=== PATIENT | male | born 1975 | race Caucasian/White ===

== ENCOUNTER 2023-01-03 01:04 | Inpatient (IN) | payer OTHER, MEDICAID ==
[2023-01-03 01:14] LABS: Actual Bicarbonate (HCO3a) 17.4 mEq/L (22-28); Analyzer IN Cardio ER; Base Excess (BEa) -14.1 mEq/L (-2.0 to +3.0); Carboxyhemoglobin (COHb) 0.3 gm% (0.0-3.0); Hematocrit-ABG 44 % (42.0-52.0); O2 Tension (PaO2), arterial 85.5 mmHg (80.0-100.0); Potassium - ABG Lab 5.52 mmol/L (3.70-5.30)
[2023-01-03 01:17] LABS: ALV-art Gradient 545.875 mmHg (0-20); Puncture Site RRA
[2023-01-03] MEDS ORDERED: Dexamethasone 10 MG/ML VIAL ONE (01:18)
[2023-01-03] MEDS ORDERED: Vancomycin 1 GM/200 ML (FROZEN) BAG ONE (01:19)
[2023-01-03] MEDS ORDERED: Magnesium 2 GM/50 ML BAG (IN WATER) ONE (01:19)
[2023-01-03] MEDS ORDERED: Cefepime 2 GM VIAL ONE (01:19)
[2023-01-03] MEDS ORDERED: Ipratropium/Albuterol 3 ML NEB ONE (01:24)
[2023-01-03] MEDS ORDERED: Fentanyl CADD 100 ML IV SCH (01:30)
[2023-01-03 01:31] LABS: #Monocytes 0.6 thou/uL (0.11-0.59); #Neutrophils 13.4 thou/uL (1.40-6.50); %Basophils 0.2 % (0.0-1.0); %Lymphocytes 3.6 % (21.0-51.0); %Monocytes 3.8 % (0.0-10.0); %Neutrophils 91.9 % (42.0-75.0); Hemoglobin 14.2 g/dL (14.0-18.0); Mean Corpuscular HGB CONC 31.9 g/dL (32.0-36.0); Mean Corpuscular Hemoglobin 30.5 pg (27.0-31.0); Mean Corpuscular Volume 95.7 fl (78.0-98.0); Mean Platelet Volume 8.8 fL (7.4-10.4); Platelet Count 220 10x3/uL (130-400); Red Blood Cell (RBC) Count 4.65 mill/uL (4.70-6.10); White Blood Cell (WBC) Count 14.6 10x3/uL (4.8-10.8)
[2023-01-03 01:44] LABS: Bacteria/HPF None Seen HPF (None Seen); Bilirubin Negative (Negative); Blood, Urine 1+ (Negative); Clarity Clear (Clear); Glucose, Urine (Dipstick) Normal (Negative); Ketone, Urine 10 mg/dL (Negative); Leukocyte Negative Leu/uL (Negative); Nitrite Negative (Negative); Protein, Urine (Dipstick) 100 mg/dL (Neg-Trace); RBC/HPF 0-3 HPF (0-3); Specific Gravity, Urine 1.019 (1.002-1.036); Squamous Epithelial 0-3 HPF (0-3); Urobilinogen Normal mg/dL (Less than 2); WBC/HPF 0-3 HPF (0-3); pH, Urine 5.5 (5.0-9.0)
[2023-01-03 02:02] LABS: AST (SGOT) 42 U/L (5-34); Albumin 4.3 g/dL (3.5-5.0); Alkaline Phosphatase 137 U/L (40-110); Anion Gap 24 mmol/L (10-20); BUN (Urea Nitrogen) 47 mg/dL (8.9-20.6); Bilirubin, Total Less than 0.2 mg/dL (0.2-1.2); CK (CPK) 707 U/L (30-200); Calc. Creatinine Clearance 0 mL/min (70-130); Calcium 9.7 mg/dL (7.8-10.44); Carbon Dioxide 17 mmol/L (22-29); Chloride 106 mmol/L (98-107); Estimated GFR 30; Globulin 3.3 g/dL (2.4-3.5); Glucose 162 mg/dL (70-105); Potassium 5.7 mmol/L (3.5-5.1); Protein, Total 7.6 g/dL (6.0-8.3); Sodium 141 mmol/L (136-145)
[2023-01-03 02:03] LABS: ALT (SGPT) 37 U/L (8-55)
[2023-01-03 02:38] LABS: Lipase 119 U/L (8-78)
[2023-01-03] MEDS ORDERED: Ondansetron PF 4 MG/2 ML Vial IVP PRN (03:42)
[2023-01-03] MEDS ORDERED: Ventilator Sedation Protocol 1 EACH FS SCH (03:45)
[2023-01-03] MEDS ORDERED: Glucagon 1 MG/ML KIT IM PRN (03:46)
[2023-01-03] MEDS ORDERED: Dextrose 5% in Water 1,000 ML IV PRN (03:46)
[2023-01-03] MEDS ORDERED: HumaLOG 300 UNITS/3 ML VIAL SC PRN ×2 (03:46)
[2023-01-03] MEDS ORDERED: Propofol BOLUS 1,000 MG/100 ML VIAL IV PRN (04:00)
[2023-01-03] MEDS ORDERED: DISCONTINUE PREVIOUS NARCOTIC PAIN MEDICATIONS AND BENZODIAZEPINES FS SCH (04:00)
[2023-01-03] MEDS ORDERED: Fentanyl BOLUS 250 ML IVPB PRN (04:00)
[2023-01-03] MEDS ORDERED: Ipratropium/Albuterol 3 ML NEB EZPAP PRN (04:02)
[2023-01-03 04:12] LABS: Actual Bicarbonate (HCO3a) 18.3 mEq/L (22-28); Base Excess (BEa) -15.3 mEq/L (-2.0 to +3.0); Calcium, Ionized (arterial) 1.17 mmol/L (1.12-1.30); Carboxyhemoglobin (COHb) 0.3 gm% (0.0-3.0); Hematocrit-ABG 44 % (42.0-52.0); Hemoglobin (Hb) 14.8 g/dL (14.0-18.0); O2 Tension (PaO2), arterial 111.7 mmHg (80.0-100.0); Potassium - ABG Lab 5.38 mmol/L (3.70-5.30)
[2023-01-03 04:13] LABS: CO2 Tension 83.8 mmHg (35.0-45.0); Puncture Site RRA; pH, Arterial 6.957 (7.35-7.45)
[2023-01-03] MEDS ORDERED: Ipratropium/Albuterol 3 ML NEB EZPAP SCH ×2 (05:00→10:30)
[2023-01-03] MEDS ORDERED: VANCOMYCIN IVPB PRN (05:02)
[2023-01-03] MEDS ORDERED: Vecuronium 10 MG VIAL IVP PRN (05:18)
[2023-01-03] MEDS: Propofol 1,000 MG/100 ML VIAL IV PRN ×2 (05:29→16:46)
[2023-01-03] MEDS: methylPREDNISolone Sod Succ 40 MG VIAL IVP SCH ×4 (05:29→23:57)
[2023-01-03] MEDS ORDERED: Artificial Tear Sol 15 ML BOT EA EYE PRN (05:37)
[2023-01-03] MEDS ORDERED: Ipratropium/Albuterol 3 ML NEB NEB SCH ×2 (06:30→07:00)
[2023-01-03] MEDS ORDERED: Vancomycin 1 GM in Premix Bag 1 BAG IVPB SCH ×2 (06:30→09:00)
[2023-01-03 06:36] LABS: ALT (SGPT) 32 U/L (8-55); AST (SGOT) 34 U/L (5-34); Albumin 3.9 g/dL (3.5-5.0); Alkaline Phosphatase 132 U/L (40-110); Anion Gap 22 mmol/L (10-20); BUN (Urea Nitrogen) 46 mg/dL (8.9-20.6); Bilirubin, Total Less than 0.2 mg/dL (0.2-1.2); Calc. Creatinine Clearance 61 mL/min (70-130); Calcium 8.7 mg/dL (7.8-10.44); Carbon Dioxide 14 mmol/L (22-29); Chloride 108 mmol/L (98-107); Estimated GFR 31; Glucose 330 mg/dL (70-105); Protein, Total 6.9 g/dL (6.0-8.3); Sodium 137 mmol/L (136-145)
[2023-01-03 06:37] LABS: Actual Bicarbonate (HCO3a) 17.7 mEq/L (22-28); Base Excess (BEa) -14.3 mEq/L (-2.0 to +3.0); Calcium, Ionized (arterial) 1.16 mmol/L (1.12-1.30); Carboxyhemoglobin (COHb) 0.2 gm% (0.0-3.0); Hematocrit-ABG 44 % (42.0-52.0); Hemoglobin (Hb) 14.9 g/dL (14.0-18.0); O2 Tension (PaO2), arterial 94.8 mmHg (80.0-100.0)
[2023-01-03 06:42] LABS: Potassium 6.6 mmol/L (3.5-5.1)
[2023-01-03] MEDS ORDERED: Sodium Bicarb 50 MEQ/50 ML VIAL IVP SCH ×2 (06:45→11:45)
[2023-01-03] MEDS ORDERED: Insulin Regular 300 UNITS/3 ML VIAL IVP SCH (06:45)
[2023-01-03 06:46] LABS: Amphetamine Not Detected (NotDetected); Barbiturates Screen Not Detected (NotDetected); Benzodiazepine Screen Not Detected (NotDetected); Cocaine Metabolite Screen Not Detected (NotDetected); Methadone Not Detected (NotDetected); Methamphetamine Not Detected (NotDetected); Opiate Screen Not Detected (NotDetected); Oxycodone Screen Not Detected (NotDetected); Phencyclidine (PCP) Not Detected (NotDetected); THC/Cannabinoid Screen Not Detected (NotDetected); Tricyclic Screen Not Detected (NotDetected)
[2023-01-03 07:00] LABS: SARS-CoV-2 NAA Rapid Test Not Detected (NotDetected)
[2023-01-03] MEDS ORDERED: Sodium Chloride 0.45% 1,000 ML IV SCH (07:00)
[2023-01-03] MEDS ORDERED: CALCIUM GLUC 1 GM/NS 50 ML 1 GM in Premix Bag 1 BAG IVPB SCH (07:00)
[2023-01-03 07:09] LABS: pH, Arterial 7.021 (7.35-7.45)
[2023-01-03 07:10] LABS: Potassium - ABG Lab 6.56 mmol/L (3.70-5.30); Puncture Site RRA
[2023-01-03] MEDS: Sodium Bicarbonate 70 MEQ in Sodium Chloride 0.45% 1,000 ML IV SCH ×2 (07:56→17:32)
[2023-01-03] MEDS: Vecuronium 10 MG VIAL IVP PRN ×5 (07:57→19:19)
[2023-01-03] MEDS: Famotidine 20 MG TAB PER TUBE SCH (08:13)
[2023-01-03] MEDS: Heparin 5,000 UNITS/ML VIAL SC SCH ×2 (08:13→20:06)
[2023-01-03] MEDS ORDERED: Iopamidol-370 76% 500 ML MDV (1 ML CHARGE) ONE (08:51)
[2023-01-03 09:39] LABS: Legionella Urinary Ag Negative (Negative); Strep pneumo Urine Ag NEGATIVE (NEGATIVE)
[2023-01-03] MEDS: Ipratropium/Albuterol 3 ML NEB NEB SCH ×4 (10:47→22:22)
[2023-01-03] MEDS: Albumin 25% 25 GM/100 ML BOT IVPB SCH ×3 (11:09→23:57)
[2023-01-03] MEDS: HumaLOG 300 UNITS/3 ML VIAL SC PRN ×3 (11:17→19:52)
[2023-01-03 11:20] LABS: Anion Gap 21 mmol/L (10-20); BUN (Urea Nitrogen) 47 mg/dL (8.9-20.6); Calc. Creatinine Clearance 61 mL/min (70-130); Calcium 8.4 mg/dL (7.8-10.44); Carbon Dioxide 11 mmol/L (22-29); Chloride 110 mmol/L (98-107); Estimated GFR 32; Glucose 357 mg/dL (70-105); Sodium 136 mmol/L (136-145)
[2023-01-03 11:23] LABS: Potassium 6.3 mmol/L (3.5-5.1)
[2023-01-03] MEDS: Cefepime 1 GM in Sodium Chloride 0.9% 100 ML IVPB SCH (14:02)
[2023-01-03 16:40] LABS: Anion Gap 16 mmol/L (10-20); BUN (Urea Nitrogen) 50 mg/dL (8.9-20.6); Calc. Creatinine Clearance 58 mL/min (70-130); Calcium 8.7 mg/dL (7.8-10.44); Carbon Dioxide 22 mmol/L (22-29); Chloride 111 mmol/L (98-107); Estimated GFR 30; Glucose 282 mg/dL (70-105); Potassium 4.7 mmol/L (3.5-5.1); Sodium 144 mmol/L (136-145)
[2023-01-03] MEDS ORDERED: Sterile Water 10 ML ONE (19:11)
[2023-01-04] MEDS: HumaLOG 300 UNITS/3 ML VIAL SC PRN ×6 (00:12→20:51)
[2023-01-04] MEDS ORDERED: Sterile Water 10 ML ONE ×3 (01:36→09:06)
[2023-01-04] MEDS: Vecuronium 10 MG VIAL IVP PRN ×4 (01:37→11:30)
[2023-01-04] MEDS: Ipratropium/Albuterol 3 ML NEB NEB SCH ×6 (02:16→22:25)
[2023-01-04] MEDS: Cefepime 1 GM in Sodium Chloride 0.9% 100 ML IVPB SCH ×2 (02:35→14:20)
[2023-01-04] MEDS: VANCOMYCIN 2 GRAM/500 ML BAG 2 GM in Premix Bag 1 BAG IVPB SCH (03:08)
[2023-01-04] MEDS: Sodium Bicarbonate 70 MEQ in Sodium Chloride 0.45% 1,000 ML IV SCH (03:22)
[2023-01-04 03:49] LABS: INR-International Normal Ratio 1.9; Prothrombin Time 22.7 sec (12.0-14.7)
[2023-01-04 03:50] LABS: PTT 47.5 sec (22.9-36.1)
[2023-01-04 03:52] LABS: Phosphorus 2.3 mg/dL (2.3-4.7)
[2023-01-04 03:55] LABS: Hemoglobin A1c 6.9 % (4.0-6.0)
[2023-01-04 03:57] LABS: ALT (SGPT) 20 U/L (8-55); AST (SGOT) 23 U/L (5-34); Alkaline Phosphatase 90 U/L (40-110); Anion Gap 19 mmol/L (10-20); BUN (Urea Nitrogen) 48 mg/dL (8.9-20.6); Bilirubin, Total Less than 0.2 mg/dL (0.2-1.2); CK (CPK) 656 U/L (30-200); Calc. Creatinine Clearance 64 mL/min (70-130); Calcium 8.5 mg/dL (7.8-10.44); Carbon Dioxide 21 mmol/L (22-29); Chloride 109 mmol/L (98-107); Estimated GFR 33; Globulin 2.2 g/dL (2.4-3.5); Glucose 232 mg/dL (70-105); Lipase 61 U/L (8-78); Magnesium 2.6 mg/dL (1.6-2.6); Potassium 3.6 mmol/L (3.5-5.1); Protein, Total 6.2 g/dL (6.0-8.3); Sodium 145 mmol/L (136-145)
[2023-01-04] MEDS: Acetaminophen 650 MG Suppository PR PRN (04:24)
[2023-01-04] MEDS: methylPREDNISolone Sod Succ 40 MG VIAL IVP SCH ×3 (05:02→18:09)
[2023-01-04] MEDS: Albumin 25% 25 GM/100 ML BOT IVPB SCH (05:02)
[2023-01-04 06:12] LABS: Mean Corpuscular HGB CONC 32.4 g/dL (32.0-36.0); Mean Corpuscular Hemoglobin 31.6 pg (27.0-31.0); Mean Corpuscular Volume 97.6 fl (78.0-98.0); Mean Platelet Volume 9.2 fL (7.4-10.4); Platelet Count 178 10x3/uL (130-400); RBC Distribution Width 13.4 % (11.5-14.5); Red Blood Cell (RBC) Count 3.35 mill/uL (4.70-6.10); White Blood Cell (WBC) Count 11.8 10x3/uL (4.8-10.8)
[2023-01-04 07:15] LABS: Hemoglobin 10.6 g/dL (14.0-18.0)
[2023-01-04 07:18] LABS: Delete Auto Diff?? YES; Manual Diff?? YES
[2023-01-04] MEDS ORDERED: LOKELMA 10 GM PACKET PO SCH (09:00)
[2023-01-04] MEDS: Heparin 5,000 UNITS/ML VIAL SC SCH ×2 (09:23→20:46)
[2023-01-04] MEDS: Famotidine 20 MG TAB PER TUBE SCH ×2 (09:23→20:47)
[2023-01-04 09:43] LABS: Band 17 % (5-11); CellaVision Operator ID LAB.CMB; Eosinophils 4 % (0-10); Large Platelets 0.9 % (0-5); Lymphocytes 9 % (21-51); Monocytes 5 % (0-10); Neutrophil 66 % (42-75); Platelet Adequacy Comment Platelets Normal; Polychromasia SLIGHT = 2-3 cells HPF (0-2); Total Cell Count 108
[2023-01-04 10:59] LABS: Actual Bicarbonate (HCO3a) 23.6 mEq/L (22-28); Base Excess (BEa) 1.4 mEq/L (-2.0 to +3.0); CO2 Tension 29.9 mmHg (35.0-45.0); Calcium, Ionized (arterial) 1.09 mmol/L (1.12-1.30); Carboxyhemoglobin (COHb) 0.3 gm% (0.0-3.0); Hematocrit-ABG 33 % (42.0-52.0); Hemoglobin (Hb) 11.3 g/dL (14.0-18.0); O2 Tension (PaO2), arterial 141.3 mmHg (80.0-100.0); Potassium - ABG Lab 3.16 mmol/L (3.70-5.30); Puncture Site LRA; pH, Arterial 7.516 (7.35-7.45)
[2023-01-04 11:00] LABS: ALV-art Gradient 106.525 mmHg (0-20)
[2023-01-04] MEDS ORDERED: Electrolyte Replacement Protocol FS PRN (11:15)
[2023-01-04] MEDS ORDERED: Insulin Glargine 30 UNITS/0.3 ML VIAL SC SCH (11:15)
[2023-01-04] MEDS: Lorazepam 2 MG/ML VIAL SLOW IVP PRN (11:25)
[2023-01-04] MEDS: Acetaminophen 325 MG TAB PO PRN (11:43)
[2023-01-04] MEDS: Dextrose 5 %-0.45 % NaCl 1,000 ML IV SCH (11:56)
[2023-01-04] MEDS: Propofol 1,000 MG/100 ML VIAL IV PRN ×2 (14:20→22:00)
[2023-01-04] MEDS: Insulin Glargine 30 UNITS/0.3 ML VIAL SC SCH (20:47)
[2023-01-05] MEDS: methylPREDNISolone Sod Succ 40 MG VIAL IVP SCH ×3 (00:08→20:56)
[2023-01-05] MEDS: Dextrose 5 %-0.45 % NaCl 1,000 ML IV SCH (00:11)
[2023-01-05] MEDS: HumaLOG 300 UNITS/3 ML VIAL SC PRN ×6 (00:24→20:58)
[2023-01-05 01:54] LABS: Vancomycin, Trough 17.8 ug/mL
[2023-01-05] MEDS: Ipratropium/Albuterol 3 ML NEB NEB SCH ×6 (02:10→22:20)
[2023-01-05] MEDS: Cefepime 1 GM in Sodium Chloride 0.9% 100 ML IVPB SCH ×2 (02:21→17:08)
[2023-01-05] MEDS: VANCOMYCIN 2 GRAM/500 ML BAG 2 GM in Premix Bag 1 BAG IVPB SCH (02:51)
[2023-01-05 04:07] LABS: #Monocytes 0.5 thou/uL (0.11-0.59); #Neutrophils 7.9 thou/uL (1.40-6.50); %Basophils 0.1 % (0.0-1.0); %Lymphocytes 6.1 % (21.0-51.0); %Neutrophils 88.4 % (42.0-75.0); Hemoglobin 10.4 g/dL (14.0-18.0); Mean Corpuscular HGB CONC 31.6 g/dL (32.0-36.0); Mean Corpuscular Volume 94.8 fl (78.0-98.0); Mean Platelet Volume 9.6 fL (7.4-10.4); Platelet Count 174 10x3/uL (130-400); RBC Distribution Width 13.5 % (11.5-14.5); Red Blood Cell (RBC) Count 3.47 mill/uL (4.70-6.10)
[2023-01-05 04:22] LABS: INR-International Normal Ratio 1.3; PTT 40.8 sec (22.9-36.1); Prothrombin Time 17.1 sec (12.0-14.7)
[2023-01-05 04:36] LABS: ALT (SGPT) 18 U/L (8-55); AST (SGOT) 31 U/L (5-34); Albumin 3.8 g/dL (3.5-5.0); Alkaline Phosphatase 83 U/L (40-110); Anion Gap 14 mmol/L (10-20); BUN (Urea Nitrogen) 42 mg/dL (8.9-20.6); Bilirubin, Total 0.2 mg/dL (0.2-1.2); Calc. Creatinine Clearance 72 mL/min (70-130); Calcium 8.8 mg/dL (7.8-10.44); Carbon Dioxide 24 mmol/L (22-29); Chloride 111 mmol/L (98-107); Estimated GFR 39; Globulin 2.2 g/dL (2.4-3.5); Potassium 3.5 mmol/L (3.5-5.1); Sodium 145 mmol/L (136-145)
[2023-01-05 04:58] LABS: Glucose 414 mg/dL (70-105)
[2023-01-05 06:59] LABS: Actual Bicarbonate (HCO3a) 26.9 mEq/L (22-28); CO2 Tension 38.5 mmHg (35.0-45.0); Calcium, Ionized (arterial) 1.16 mmol/L (1.12-1.30); Hematocrit-ABG 33 % (42.0-52.0); Hemoglobin (Hb) 11.3 g/dL (14.0-18.0); O2 Tension (PaO2), arterial 76.7 mmHg (80.0-100.0); Potassium - ABG Lab 3.63 mmol/L (3.70-5.30); pH, Arterial 7.462 (7.35-7.45)
[2023-01-05 07:01] LABS: Puncture Site RRA
[2023-01-05 07:02] LABS: ALV-art Gradient 160.375 mmHg (0-20)
[2023-01-05] MEDS: Heparin 5,000 UNITS/ML VIAL SC SCH ×2 (08:04→20:55)
[2023-01-05] MEDS: Famotidine 20 MG TAB PER TUBE SCH ×2 (08:04→20:56)
[2023-01-05] MEDS: Propofol 1,000 MG/100 ML VIAL IV PRN (08:04)
[2023-01-05] MEDS: Insulin Glargine 30 UNITS/0.3 ML VIAL SC SCH ×2 (08:04→20:53)
[2023-01-05] MEDS: Potassium Chloride 20 MEQ in Premix Bag 1 BAG IVPB SCH ×2 (08:12→10:22)
[2023-01-05] MEDS ORDERED: Furosemide 20 MG in Sodium Chloride 0.9% 90 ML IVPB SCH (10:15)
[2023-01-05] MEDS ORDERED: Furosemide 20 MG/2 ML VIAL SLOW IVP SCH (10:45)
[2023-01-05 10:48] LABS: Actual Bicarbonate (HCO3a) 25.9 mEq/L (22-28); Base Excess (BEa) 2.1 mEq/L (-2.0 to +3.0); CO2 Tension 37.3 mmHg (35.0-45.0); Calcium, Ionized (arterial) 1.18 mmol/L (1.12-1.30); Carboxyhemoglobin (COHb) 0.3 gm% (0.0-3.0); Hematocrit-ABG 34 % (42.0-52.0); Hemoglobin (Hb) 11.6 g/dL (14.0-18.0); O2 Tension (PaO2), arterial 80.1 mmHg (80.0-100.0); pH, Arterial 7.459 (7.35-7.45)
[2023-01-05 10:49] LABS: ALV-art Gradient 158.475 mmHg (0-20); Puncture Site RRA
[2023-01-06] MEDS: Ipratropium/Albuterol 3 ML NEB NEB SCH ×6 (01:52→22:27)
[2023-01-06] MEDS: Cefepime 1 GM in Sodium Chloride 0.9% 100 ML IVPB SCH (02:07)
[2023-01-06] MEDS: HumaLOG 300 UNITS/3 ML VIAL SC PRN (02:08)
[2023-01-06] MEDS: VANCOMYCIN 2 GRAM/500 ML BAG 2 GM in Premix Bag 1 BAG IVPB SCH (03:03)
[2023-01-06] MEDS: Acetaminophen 650 MG Suppository PR PRN (03:04)
[2023-01-06] MEDS: Acetaminophen 325 MG TAB PO PRN ×2 (03:12→21:22)
[2023-01-06 03:37] LABS: #Monocytes 0.3 thou/uL (0.11-0.59); #Neutrophils 11.5 thou/uL (1.40-6.50); %Basophils 0.1 % (0.0-1.0); %Lymphocytes 5.2 % (21.0-51.0); %Monocytes 2.6 % (0.0-10.0); %Neutrophils 91.6 % (42.0-75.0); Hemoglobin 11.5 g/dL (14.0-18.0); Mean Corpuscular HGB CONC 31.9 g/dL (32.0-36.0); Mean Corpuscular Hemoglobin 30.8 pg (27.0-31.0); Mean Corpuscular Volume 96.5 fl (78.0-98.0); Mean Platelet Volume 9.7 fL (7.4-10.4); Platelet Count 200 10x3/uL (130-400); RBC Distribution Width 13.2 % (11.5-14.5); Red Blood Cell (RBC) Count 3.73 mill/uL (4.70-6.10); White Blood Cell (WBC) Count 12.5 10x3/uL (4.8-10.8)
[2023-01-06 04:08] LABS: ALT (SGPT) 21 U/L (8-55); AST (SGOT) 29 U/L (5-34); Albumin 3.6 g/dL (3.5-5.0); Alkaline Phosphatase 85 U/L (40-110); Anion Gap 16 mmol/L (10-20); BUN (Urea Nitrogen) 50 mg/dL (8.9-20.6); Bilirubin, Total 0.2 mg/dL (0.2-1.2); Calc. Creatinine Clearance 72 mL/min (70-130); Calcium 8.9 mg/dL (7.8-10.44); Carbon Dioxide 25 mmol/L (22-29); Chloride 113 mmol/L (98-107); Estimated GFR 39; Globulin 2.6 g/dL (2.4-3.5); Glucose 408 mg/dL (70-105); Potassium 4.6 mmol/L (3.5-5.1); Protein, Total 6.2 g/dL (6.0-8.3); Sodium 149 mmol/L (136-145)
[2023-01-06] MEDS: HUMULIN R 100 UNITS in Sodium Chloride 0.9% 100 ML IVPB SCH ×2 (05:15→21:34)
[2023-01-06] MEDS: Insulin Glargine 30 UNITS/0.3 ML VIAL SC SCH ×2 (09:37→21:22)
[2023-01-06] MEDS: Furosemide 20 MG/2 ML VIAL SLOW IVP SCH (09:53)
[2023-01-06] MEDS: Famotidine 20 MG TAB PER TUBE SCH ×2 (09:53→21:21)
[2023-01-06] MEDS: Heparin 5,000 UNITS/ML VIAL SC SCH ×2 (09:54→21:21)
[2023-01-06] MEDS: methylPREDNISolone Sod Succ 40 MG VIAL IVP SCH (10:54)
[2023-01-06] MEDS ORDERED: methylPREDNISolone Sod Succ 40 MG VIAL IVP SCH (21:00)
[2023-01-07] MEDS: Ipratropium/Albuterol 3 ML NEB NEB SCH ×6 (02:25→22:45)
[2023-01-07 02:30] LABS: Vancomycin, Trough 22.6 ug/mL
[2023-01-07] MEDS: VANCOMYCIN 2 GRAM/500 ML BAG 2 GM in Premix Bag 1 BAG IVPB SCH (03:41)
[2023-01-07 04:58] LABS: #Monocytes 0.4 thou/uL (0.11-0.59); #Neutrophils 8.9 thou/uL (1.40-6.50); %Lymphocytes 8.7 % (21.0-51.0); %Monocytes 3.6 % (0.0-10.0); %Neutrophils 87.4 % (42.0-75.0); Hemoglobin 11.7 g/dL (14.0-18.0); Mean Corpuscular HGB CONC 31.1 g/dL (32.0-36.0); Mean Corpuscular Volume 96.4 fl (78.0-98.0); Mean Platelet Volume 10.1 fL (7.4-10.4); Platelet Count 188 10x3/uL (130-400); RBC Distribution Width 13.2 % (11.5-14.5); White Blood Cell (WBC) Count 10.2 10x3/uL (4.8-10.8)
[2023-01-07 05:34] LABS: ALT (SGPT) 52 U/L (8-55); AST (SGOT) 72 U/L (5-34); Albumin 3.6 g/dL (3.5-5.0); Alkaline Phosphatase 87 U/L (40-110); Anion Gap 15 mmol/L (10-20); BUN (Urea Nitrogen) 51 mg/dL (8.9-20.6); Bilirubin, Total 0.4 mg/dL (0.2-1.2); Calc. Creatinine Clearance 99 mL/min (70-130); Calcium 9.2 mg/dL (7.8-10.44); Carbon Dioxide 28 mmol/L (22-29); Chloride 112 mmol/L (98-107); Estimated GFR 58; Globulin 2.7 g/dL (2.4-3.5); Glucose 149 mg/dL (70-105); Potassium 4.7 mmol/L (3.5-5.1); Protein, Total 6.3 g/dL (6.0-8.3); Sodium 150 mmol/L (136-145)
[2023-01-07] MEDS: Sodium Chloride 0.45% 1,000 ML IV SCH ×2 (06:13→17:41)
[2023-01-07 06:46] LABS: Actual Bicarbonate (HCO3a) 27.5 mEq/L (22-28); Base Excess (BEa) 4.1 mEq/L (-2.0 to +3.0); CO2 Tension 37.4 mmHg (35.0-45.0); Calcium, Ionized (arterial) 1.19 mmol/L (1.12-1.30); Hematocrit-ABG 37 % (42.0-52.0); Hemoglobin (Hb) 12.7 g/dL (14.0-18.0); O2 Tension (PaO2), arterial 70.9 mmHg (80.0-100.0); Potassium - ABG Lab 3.94 mmol/L (3.70-5.30); pH, Arterial 7.485 (7.35-7.45)
[2023-01-07] MEDS: HUMULIN R 100 UNITS in Sodium Chloride 0.9% 100 ML IVPB SCH (09:20)
[2023-01-07] MEDS: Heparin 5,000 UNITS/ML VIAL SC SCH ×2 (09:21→20:34)
[2023-01-07] MEDS: Famotidine 20 MG TAB PER TUBE SCH ×2 (09:21→20:06)
[2023-01-07] MEDS: Furosemide 20 MG/2 ML VIAL SLOW IVP SCH (09:21)
[2023-01-07 09:47] LABS: Puncture Site LRA
[2023-01-07] MEDS: Insulin Glargine 30 UNITS/0.3 ML VIAL SC SCH ×2 (10:14→20:33)
[2023-01-07] MEDS: HumaLOG 300 UNITS/3 ML VIAL SC PRN ×3 (13:10→20:06)
[2023-01-07] MEDS: Acetaminophen 325 MG TAB PO PRN ×2 (15:36→21:36)
[2023-01-07] MEDS: Vancomycin 1.5 GRAM/300 ML BAG 1.5 GM in Premix Bag 1 BAG IVPB SCH (15:43)
[2023-01-07] MEDS: Lorazepam 2 MG/ML VIAL SLOW IVP PRN (17:35)
[2023-01-08] MEDS: HumaLOG 300 UNITS/3 ML VIAL SC PRN ×6 (00:27→19:55)
[2023-01-08] MEDS: Ipratropium/Albuterol 3 ML NEB NEB SCH ×6 (01:52→22:43)
[2023-01-08] MEDS: Sodium Chloride 0.45% 1,000 ML IV SCH ×2 (02:45→15:50)
[2023-01-08 08:07] LABS: Anion Gap 13 mmol/L (10-20); BUN (Urea Nitrogen) 46 mg/dL (8.9-20.6); Calc. Creatinine Clearance 107 mL/min (70-130); Calcium 8.6 mg/dL (7.8-10.44); Carbon Dioxide 25 mmol/L (22-29); Chloride 106 mmol/L (98-107); Estimated GFR 63; Glucose 364 mg/dL (70-105); Sodium 140 mmol/L (136-145)
[2023-01-08] MEDS: Famotidine 20 MG TAB PER TUBE SCH (08:35)
[2023-01-08] MEDS: Heparin 5,000 UNITS/ML VIAL SC SCH ×2 (08:36→20:38)
[2023-01-08] MEDS: Insulin Glargine 30 UNITS/0.3 ML VIAL SC SCH ×2 (08:36→20:40)
[2023-01-08] MEDS: Lorazepam 2 MG/ML VIAL SLOW IVP PRN (15:15)
[2023-01-08] MEDS: Vancomycin 1.5 GRAM/300 ML BAG 1.5 GM in Premix Bag 1 BAG IVPB SCH (15:49)
[2023-01-08] MEDS: Senokot S 8.6-50 MG TAB PO SCH (20:41)
[2023-01-08] MEDS: Polyethylene Glycol 3350 17 GM Packet PO PRN (22:07)
[2023-01-09] MEDS: HumaLOG 300 UNITS/3 ML VIAL SC PRN ×6 (00:15→20:39)
[2023-01-09] MEDS: Sodium Chloride 0.45% 1,000 ML IV SCH ×3 (01:11→20:32)
[2023-01-09] MEDS: Ipratropium/Albuterol 3 ML NEB NEB SCH ×6 (01:47→22:05)
[2023-01-09 07:35] LABS: Anion Gap 13 mmol/L (10-20); BUN (Urea Nitrogen) 36 mg/dL (8.9-20.6); Calc. Creatinine Clearance 129 mL/min (70-130); Calcium 8.6 mg/dL (7.8-10.44); Carbon Dioxide 26 mmol/L (22-29); Chloride 103 mmol/L (98-107); Estimated GFR 79; Glucose 302 mg/dL (70-105); Potassium 3.9 mmol/L (3.5-5.1); Sodium 138 mmol/L (136-145)
[2023-01-09] MEDS: Heparin 5,000 UNITS/ML VIAL SC SCH ×2 (10:03→20:57)
[2023-01-09] MEDS: Insulin Glargine 30 UNITS/0.3 ML VIAL SC SCH ×2 (10:03→20:41)
[2023-01-09] MEDS: Polyethylene Glycol 3350 17 GM Packet PO PRN (10:04)
[2023-01-09] MEDS: Senokot S 8.6-50 MG TAB PO SCH ×2 (10:04→20:48)
[2023-01-09] MEDS: Lorazepam 2 MG/ML VIAL SLOW IVP PRN (13:00)
[2023-01-09] MEDS ORDERED: Rocuronium Bromide 10 MG/ML (10ML VIAL) ONE (13:05)
[2023-01-09] MEDS ORDERED: Dexamethasone 6 MG in Sodium Chloride 0.9% 50 ML IVPB SCH (14:00)
[2023-01-09] MEDS: Morphine 2 MG/ML VIAL SLOW IVP PRN (14:11)
[2023-01-09] MEDS: Propofol 1,000 MG/100 ML VIAL IV PRN (14:14)
[2023-01-09 14:15] LABS: Actual Bicarbonate (HCO3a) 27.4 mEq/L (22-28); Base Excess (BEa) 3.1 mEq/L (-2.0 to +3.0); CO2 Tension 40.8 mmHg (35.0-45.0); Calcium, Ionized (arterial) 1.17 mmol/L (1.12-1.30); Carboxyhemoglobin (COHb) 0.7 gm% (0.0-3.0); Hematocrit-ABG 39 % (42.0-52.0); Hemoglobin (Hb) 13.1 g/dL (14.0-18.0); O2 Tension (PaO2), arterial 62.7 mmHg (80.0-100.0); Potassium - ABG Lab 4.08 mmol/L (3.70-5.30); Puncture Site RRA; pH, Arterial 7.445 (7.35-7.45)
[2023-01-09 14:18] LABS: Vancomycin, Trough 10.6 ug/mL
[2023-01-09] MEDS: Dexamethasone 4 mg/ml Vial SLOW IVP SCH ×2 (14:22→20:33)
[2023-01-09] MEDS ORDERED: VANCOMYCIN 1.75 GM/500 ML BAG 1.75 GM in Premix Bag 1 BAG IVPB SCH (15:00)
[2023-01-09] MEDS ORDERED: NOREPINEPHRINE 8 MG/250 ML-D5W 0 ML ONE (15:21)
[2023-01-09] MEDS ORDERED: Sodium Chloride 0.9% 1,000 ML IV SCH (16:00)
[2023-01-10] MEDS: HumaLOG 300 UNITS/3 ML VIAL SC PRN ×6 (00:52→19:25)
[2023-01-10] MEDS: Dexamethasone 4 mg/ml Vial SLOW IVP SCH ×4 (02:47→20:59)
[2023-01-10] MEDS: Ipratropium/Albuterol 3 ML NEB NEB SCH ×6 (02:48→22:08)
[2023-01-10] MEDS: Propofol 1,000 MG/100 ML VIAL IV PRN ×4 (03:45→20:59)
[2023-01-10 06:29] LABS: Actual Bicarbonate (HCO3a) 24.1 mEq/L (22-28); Base Excess (BEa) 1.1 mEq/L (-2.0 to +3.0); CO2 Tension 33.1 mmHg (35.0-45.0); Calcium, Ionized (arterial) 1.16 mmol/L (1.12-1.30); Carboxyhemoglobin (COHb) 0.4 gm% (0.0-3.0); Hematocrit-ABG 37 % (42.0-52.0); Hemoglobin (Hb) 12.6 g/dL (14.0-18.0); O2 Tension (PaO2), arterial 74.6 mmHg (80.0-100.0); Potassium - ABG Lab 4.58 mmol/L (3.70-5.30)
[2023-01-10 06:44] LABS: Puncture Site RRA
[2023-01-10 06:45] LABS: ALV-art Gradient 204.875 mmHg (0-20)
[2023-01-10] MEDS: Heparin 5,000 UNITS/ML VIAL SC SCH ×2 (08:56→21:01)
[2023-01-10] MEDS: Insulin Glargine 30 UNITS/0.3 ML VIAL SC SCH ×2 (08:57→21:00)
[2023-01-10] MEDS: Senokot S 8.6-50 MG TAB PO SCH ×2 (08:57→21:01)
[2023-01-10] MEDS: Sodium Chloride 0.45% 1,000 ML IV SCH ×2 (08:57→18:18)
[2023-01-10] MEDS: Lorazepam 2 MG/ML VIAL SLOW IVP PRN ×2 (15:34→21:00)
[2023-01-10] MEDS: Dexmedetomidine In 0.9 % NaCl 400 MCG in Premix Bag 1 BAG IV SCH ×2 (19:27→23:48)
[2023-01-11] MEDS: HumaLOG 300 UNITS/3 ML VIAL SC PRN ×6 (00:24→20:03)
[2023-01-11] MEDS: Sodium Chloride 0.45% 1,000 ML IV SCH ×2 (00:25→11:12)
[2023-01-11] MEDS: Ipratropium/Albuterol 3 ML NEB NEB SCH ×6 (02:11→21:46)
[2023-01-11] MEDS: Dexamethasone 4 mg/ml Vial SLOW IVP SCH ×4 (02:42→20:33)
[2023-01-11] MEDS: Propofol 1,000 MG/100 ML VIAL IV PRN ×5 (02:45→20:37)
[2023-01-11] MEDS: Dexmedetomidine In 0.9 % NaCl 400 MCG in Premix Bag 1 BAG IV SCH ×5 (03:01→23:07)
[2023-01-11 03:55] LABS: #Monocytes 0.5 thou/uL (0.11-0.59); #Neutrophils 7.6 thou/uL (1.40-6.50); %Basophils 0.1 % (0.0-1.0); %Lymphocytes 6.8 % (21.0-51.0); %Monocytes 5.6 % (0.0-10.0); %Neutrophils 86.8 % (42.0-75.0); Hemoglobin 11.9 g/dL (14.0-18.0); Mean Corpuscular Hemoglobin 30.4 pg (27.0-31.0); Mean Corpuscular Volume 92.1 fl (78.0-98.0); Mean Platelet Volume 10.1 fL (7.4-10.4); Platelet Count 195 10x3/uL (130-400); RBC Distribution Width 11.9 % (11.5-14.5); Red Blood Cell (RBC) Count 3.92 mill/uL (4.70-6.10); White Blood Cell (WBC) Count 8.7 10x3/uL (4.8-10.8)
[2023-01-11 04:26] LABS: ALT (SGPT) 38 U/L (8-55); AST (SGOT) 17 U/L (5-34); Albumin 3.2 g/dL (3.5-5.0); Alkaline Phosphatase 92 U/L (40-110); Anion Gap 15 mmol/L (10-20); BUN (Urea Nitrogen) 33 mg/dL (8.9-20.6); Bilirubin, Total 0.3 mg/dL (0.2-1.2); Calc. Creatinine Clearance 126 mL/min (70-130); Carbon Dioxide 23 mmol/L (22-29); Chloride 99 mmol/L (98-107); Estimated GFR 72; Globulin 2.6 g/dL (2.4-3.5); Glucose 366 mg/dL (70-105); Potassium 4.8 mmol/L (3.5-5.1); Protein, Total 5.8 g/dL (6.0-8.3); Sodium 132 mmol/L (136-145)
[2023-01-11 07:55] LABS: Actual Bicarbonate (HCO3a) 26.4 mEq/L (22-28); Base Excess (BEa) 3.3 mEq/L (-2.0 to +3.0); CO2 Tension 35.4 mmHg (35.0-45.0); Calcium, Ionized (arterial) 1.17 mmol/L (1.12-1.30); Carboxyhemoglobin (COHb) 0.3 gm% (0.0-3.0); Hematocrit-ABG 37 % (42.0-52.0); Hemoglobin (Hb) 12.6 g/dL (14.0-18.0); O2 Tension (PaO2), arterial 71.5 mmHg (80.0-100.0); Potassium - ABG Lab 4.83 mmol/L (3.70-5.30); pH, Arterial 7.491 (7.35-7.45)
[2023-01-11 07:57] LABS: Puncture Site RRA
[2023-01-11] MEDS: Heparin 5,000 UNITS/ML VIAL SC SCH ×2 (08:07→20:36)
[2023-01-11] MEDS: Insulin Glargine 30 UNITS/0.3 ML VIAL SC SCH ×2 (08:07→20:35)
[2023-01-11] MEDS: Senokot S 8.6-50 MG TAB PO SCH ×2 (08:08→20:35)
[2023-01-11] MEDS ORDERED: Metoclopramide HCl 10 MG/2 ML VIAL IVP SCH (10:15)
[2023-01-11] MEDS ORDERED: Pantoprazole 40 MG VIAL IVP SCH (10:45)
[2023-01-11] MEDS: Sodium Chloride 0.9% 1,000 ML IV SCH ×2 (11:23→20:38)
[2023-01-11] MEDS: Metoclopramide HCl 10 MG/2 ML VIAL IVP SCH ×2 (13:06→20:34)
[2023-01-11] MEDS: Morphine 2 MG/ML VIAL SLOW IVP PRN (16:01)
[2023-01-12] MEDS: HumaLOG 300 UNITS/3 ML VIAL SC PRN ×5 (00:54→18:06)
[2023-01-12] MEDS: Propofol 1,000 MG/100 ML VIAL IV PRN ×2 (00:56→05:22)
[2023-01-12] MEDS: Ipratropium/Albuterol 3 ML NEB NEB SCH ×6 (01:48→22:07)
[2023-01-12] MEDS: Dexamethasone 4 mg/ml Vial SLOW IVP SCH ×2 (03:28→09:01)
[2023-01-12] MEDS: Dexmedetomidine 400 MCG, Admixture Fee 1 EACH in Sodium Chloride 0.9% 96 ML IVPB SCH ×3 (03:47→23:21)
[2023-01-12 04:39] LABS: Anion Gap 15 mmol/L (10-20); BUN (Urea Nitrogen) 40 mg/dL (8.9-20.6); Calc. Creatinine Clearance 0 mL/min (70-130); Calcium 8.5 mg/dL (7.8-10.44); Carbon Dioxide 23 mmol/L (22-29); Chloride 101 mmol/L (98-107); Estimated GFR 67; Glucose 374 mg/dL (70-105); Potassium 4.8 mmol/L (3.5-5.1); Sodium 134 mmol/L (136-145)
[2023-01-12] MEDS: Metoclopramide HCl 10 MG/2 ML VIAL IVP SCH ×3 (05:22→21:04)
[2023-01-12] MEDS: Sodium Chloride 0.9% 1,000 ML IV SCH ×2 (06:37→18:43)
[2023-01-12 07:29] LABS: Base Excess (BEa) -0.5 mEq/L (-2.0 to +3.0); CO2 Tension 34.4 mmHg (35.0-45.0); Calcium, Ionized (arterial) 1.15 mmol/L (1.12-1.30); Carboxyhemoglobin (COHb) 0.3 gm% (0.0-3.0); Hematocrit-ABG 39 % (42.0-52.0); Hemoglobin (Hb) 13.2 g/dL (14.0-18.0); O2 Tension (PaO2), arterial 79.7 mmHg (80.0-100.0); Potassium - ABG Lab 4.66 mmol/L (3.70-5.30); pH, Arterial 7.443 (7.35-7.45)
[2023-01-12 07:31] LABS: Puncture Site RRA
[2023-01-12] MEDS: Insulin Glargine 30 UNITS/0.3 ML VIAL SC SCH ×2 (09:01→20:53)
[2023-01-12] MEDS: Pantoprazole 40 MG VIAL IVP SCH (09:01)
[2023-01-12] MEDS: Heparin 5,000 UNITS/ML VIAL SC SCH ×2 (09:01→21:04)
[2023-01-12] MEDS: Senokot S 8.6-50 MG TAB PO SCH ×2 (09:11→20:54)
[2023-01-12] MEDS: HumaLOG 300 UNITS/3 ML VIAL SC SCH ×2 (13:17→18:00)
[2023-01-13] MEDS: Ipratropium/Albuterol 3 ML NEB NEB SCH ×6 (02:14→21:56)
[2023-01-13 03:54] LABS: #Neutrophils 8.5 thou/uL (1.40-6.50); %Basophils 0.1 % (0.0-1.0); %Eosinophils 0.1 % (0.0-10.0); %Lymphocytes 15.1 % (21.0-51.0); %Monocytes 8.5 % (0.0-10.0); %Neutrophils 75.8 % (42.0-75.0); Hemoglobin 12.3 g/dL (14.0-18.0); Mean Corpuscular HGB CONC 32.1 g/dL (32.0-36.0); Mean Corpuscular Hemoglobin 30.4 pg (27.0-31.0); Mean Corpuscular Volume 94.8 fl (78.0-98.0); Mean Platelet Volume 9.8 fL (7.4-10.4); Platelet Count 234 10x3/uL (130-400); RBC Distribution Width 12.2 % (11.5-14.5); Red Blood Cell (RBC) Count 4.04 mill/uL (4.70-6.10); White Blood Cell (WBC) Count 11.2 10x3/uL (4.8-10.8)
[2023-01-13 04:15] LABS: Anion Gap 14 mmol/L (10-20); BUN (Urea Nitrogen) 32 mg/dL (8.9-20.6); Calc. Creatinine Clearance 0 mL/min (70-130); Calcium 8.7 mg/dL (7.8-10.44); Carbon Dioxide 25 mmol/L (22-29); Chloride 105 mmol/L (98-107); Estimated GFR 81; Glucose 107 mg/dL (70-105); Potassium 3.5 mmol/L (3.5-5.1); Sodium 140 mmol/L (136-145)
[2023-01-13] MEDS: Metoclopramide HCl 10 MG/2 ML VIAL IVP SCH ×3 (05:06→21:29)
[2023-01-13] MEDS: Potassium Chloride 20 MEQ in Premix Bag 1 BAG IVPB SCH ×2 (08:13→11:19)
[2023-01-13] MEDS: HumaLOG 300 UNITS/3 ML VIAL SC SCH ×3 (08:25→16:50)
[2023-01-13] MEDS: Insulin Glargine 30 UNITS/0.3 ML VIAL SC SCH ×2 (08:25→21:29)
[2023-01-13] MEDS: Pantoprazole 40 MG VIAL IVP SCH (08:30)
[2023-01-13] MEDS: Senokot S 8.6-50 MG TAB PO SCH ×3 (08:31→21:31)
[2023-01-13] MEDS: Heparin 5,000 UNITS/ML VIAL SC SCH ×2 (08:31→21:28)
[2023-01-13] MEDS ORDERED: Cefepime 1 GM in Sodium Chloride 0.9% 100 ML IVPB SCH (09:00)
[2023-01-13] MEDS ORDERED: VANCOMYCIN IVPB PRN (09:13)
[2023-01-13] MEDS ORDERED: VANCOMYCIN 2 GRAM/500 ML BAG 2 GM in Premix Bag 1 BAG IVPB SCH (11:15)
[2023-01-13] MEDS: Dexmedetomidine 400 MCG, Admixture Fee 1 EACH in Sodium Chloride 0.9% 96 ML IVPB SCH ×2 (13:17→22:14)
[2023-01-13 15:13] LABS: Potassium 3.9 mmol/L (3.5-5.1)
[2023-01-13] MEDS: HumaLOG 300 UNITS/3 ML VIAL SC PRN (16:52)
[2023-01-13] MEDS ORDERED: Benzocaine 20% Spray 60 ML CAN TOP SCH (17:15)
[2023-01-13] MEDS ORDERED: Vancomycin 1.5 GRAM/300 ML BAG 1.5 GM in Premix Bag 1 BAG IVPB SCH (23:00)
[2023-01-14] MEDS: HumaLOG 300 UNITS/3 ML VIAL SC PRN ×3 (01:37→21:02)
[2023-01-14] MEDS: Ipratropium/Albuterol 3 ML NEB NEB SCH ×5 (02:03→18:41)
[2023-01-14 04:11] LABS: Actual Bicarbonate (HCO3v) 25.2 mEq/L (22-28); Base Excess 0.5 mEq/L (-2.0 to +3.0); Calcium, Ionized (venous) 1.13 mmol/L (1.16-1.32); Chloride (VBG) 104 mmol/L (98-106); Hematocrit-VBG 38 % (42.0-52.0); Hemoglobin (Hb) 12.9 g/dL (13.1-17.2); Potassium (VBG) 4.25 mmol/L (3.70-5.30); Sodium 140.7 mmol/L (133-146); pH (venous) 7.407 (7.32-7.43)
[2023-01-14 04:21] LABS: #Monocytes 0.6 thou/uL (0.11-0.59); #Neutrophils 7.9 thou/uL (1.40-6.50); %Basophils 0.1 % (0.0-1.0); %Lymphocytes 9.9 % (21.0-51.0); %Monocytes 6.7 % (0.0-10.0); %Neutrophils 82.9 % (42.0-75.0); Mean Corpuscular HGB CONC 31.5 g/dL (32.0-36.0); Mean Corpuscular Hemoglobin 30.5 pg (27.0-31.0); Mean Corpuscular Volume 96.7 fl (78.0-98.0); Mean Platelet Volume 9.6 fL (7.4-10.4); Platelet Count 228 10x3/uL (130-400); RBC Distribution Width 12.5 % (11.5-14.5); Red Blood Cell (RBC) Count 3.94 mill/uL (4.70-6.10); White Blood Cell (WBC) Count 9.5 10x3/uL (4.8-10.8)
[2023-01-14 04:42] LABS: Anion Gap 14 mmol/L (10-20); BUN (Urea Nitrogen) 30 mg/dL (8.9-20.6); Calc. Creatinine Clearance 121 mL/min (70-130); Calcium 8.8 mg/dL (7.8-10.44); Carbon Dioxide 23 mmol/L (22-29); Chloride 107 mmol/L (98-107); Estimated GFR 74; Glucose 186 mg/dL (70-105); Potassium 4.3 mmol/L (3.5-5.1); Sodium 140 mmol/L (136-145)
[2023-01-14] MEDS: Acetaminophen 650 MG Suppository PR PRN ×2 (05:46→09:26)
[2023-01-14] MEDS: Metoclopramide HCl 10 MG/2 ML VIAL IVP SCH ×2 (05:48→14:00)
[2023-01-14] MEDS: HumaLOG 300 UNITS/3 ML VIAL SC SCH (08:32)
[2023-01-14] MEDS: Insulin Glargine 30 UNITS/0.3 ML VIAL SC SCH ×2 (08:38→20:48)
[2023-01-14] MEDS: Senokot S 8.6-50 MG TAB PO SCH ×2 (09:28→21:05)
[2023-01-14] MEDS: Pantoprazole 40 MG VIAL IVP SCH (09:28)
[2023-01-14] MEDS: Heparin 5,000 UNITS/ML VIAL SC SCH ×2 (09:29→20:49)
[2023-01-14] MEDS: Acetaminophen 325 MG TAB PO PRN ×2 (13:39→20:47)
[2023-01-15] MEDS: Acetaminophen 325 MG TAB PO PRN ×2 (02:51→10:29)
[2023-01-15 03:59] LABS: #Eosinphils 0.1 thou/uL (0.0-0.7); #Monocytes 1.1 thou/uL (0.11-0.59); #Neutrophils 8.1 thou/uL (1.40-6.50); %Basophils 0.1 % (0.0-1.0); %Eosinophils 0.6 % (0.0-10.0); %Lymphocytes 12.3 % (21.0-51.0); %Monocytes 10.1 % (0.0-10.0); %Neutrophils 76.4 % (42.0-75.0); Mean Corpuscular HGB CONC 31.5 g/dL (32.0-36.0); Mean Corpuscular Hemoglobin 30.5 pg (27.0-31.0); Mean Corpuscular Volume 96.9 fl (78.0-98.0); Mean Platelet Volume 9.7 fL (7.4-10.4); Platelet Count 312 10x3/uL (130-400); RBC Distribution Width 12.8 % (11.5-14.5); Red Blood Cell (RBC) Count 4.26 mill/uL (4.70-6.10); White Blood Cell (WBC) Count 10.5 10x3/uL (4.8-10.8)
[2023-01-15 04:15] LABS: Anion Gap 15 mmol/L (10-20); BUN (Urea Nitrogen) 27 mg/dL (8.9-20.6); Calc. Creatinine Clearance 125 mL/min (70-130); Calcium 8.9 mg/dL (7.8-10.44); Carbon Dioxide 22 mmol/L (22-29); Chloride 111 mmol/L (98-107); Estimated GFR 81; Glucose 142 mg/dL (70-105); Potassium 3.8 mmol/L (3.5-5.1); Sodium 144 mmol/L (136-145)
[2023-01-15] MEDS: Ipratropium/Albuterol 3 ML NEB NEB SCH ×3 (07:07→18:22)
[2023-01-15] MEDS: Insulin Glargine 30 UNITS/0.3 ML VIAL SC SCH ×2 (09:34→21:37)
[2023-01-15] MEDS: Pantoprazole 40 MG VIAL IVP SCH (09:34)
[2023-01-15] MEDS: Heparin 5,000 UNITS/ML VIAL SC SCH ×2 (09:34→21:40)
[2023-01-15] MEDS: Senokot S 8.6-50 MG TAB PO SCH ×2 (09:35→21:37)
[2023-01-15] MEDS ORDERED: Morphine 2 MG/ML VIAL SLOW IVP PRN ×2 (10:25→11:30)
[2023-01-15] MEDS ORDERED: Morphine 4 MG/ML VIAL ONE (10:26)
[2023-01-15] MEDS ORDERED: Lorazepam 2 MG/ML VIAL SLOW IVP SCH (11:15)
[2023-01-15] MEDS ORDERED: Fentanyl CADD 100 ML ONE (11:17)
[2023-01-15] MEDS ORDERED: Rocuronium Bromide 10 MG/ML (10ML VIAL) ONE (11:19)
[2023-01-15] MEDS ORDERED: PROPOFOL 200 MG/20 ML VIAL ONE (11:19)
[2023-01-15] MEDS ORDERED: Propofol 1,000 MG/100 ML VIAL IV PRN (11:30)
[2023-01-15] MEDS ORDERED: Fentanyl BOLUS 250 ML IVPB PRN (11:30)
[2023-01-15] MEDS ORDERED: DISCONTINUE PREVIOUS NARCOTIC PAIN MEDICATIONS AND BENZODIAZEPINES FS SCH (11:30)
[2023-01-15] MEDS ORDERED: Propofol BOLUS 1,000 MG/100 ML VIAL IV PRN (11:30)
[2023-01-15] MEDS ORDERED: NOREPINEPHRINE 8 MG/250 ML-D5W 250 ML ONE (11:32)
[2023-01-15] MEDS ORDERED: Ventilator Sedation Protocol 1 EACH FS SCH (11:45)
[2023-01-15] MEDS ORDERED: NOREPINEPHRINE 8 MG/250 ML-D5W 250 ML IVPB SCH (12:30)
[2023-01-15] MEDS ORDERED: Hydrocortisone Sod Succ/PF 100 mg/2 ml Vial IVP SCH (12:30)
[2023-01-15 13:18] LABS: Actual Bicarbonate (HCO3a) 16.7 mEq/L (22-28); Base Excess (BEa) -6.8 mEq/L (-2.0 to +3.0); CO2 Tension 28.1 mmHg (35.0-45.0); Calcium, Ionized (arterial) 1.16 mmol/L (1.12-1.30); Carboxyhemoglobin (COHb) 0.4 gm% (0.0-3.0); Hematocrit-ABG 40 % (42.0-52.0); Hemoglobin (Hb) 13.5 g/dL (14.0-18.0); O2 Tension (PaO2), arterial 144.3 mmHg (80.0-100.0); Potassium - ABG Lab 4.92 mmol/L (3.70-5.30); pH, Arterial 7.391 (7.35-7.45)
[2023-01-15 13:19] LABS: ALV-art Gradient 248.375 mmHg (0-20); Puncture Site RRA
[2023-01-15] MEDS: HumaLOG 300 UNITS/3 ML VIAL SC PRN ×3 (13:31→21:38)
[2023-01-15 15:33] LABS: Anion Gap 20 mmol/L (10-20); BUN (Urea Nitrogen) 33 mg/dL (8.9-20.6); Calc. Creatinine Clearance 78 mL/min (70-130); Calcium 8.7 mg/dL (7.8-10.44); Carbon Dioxide 17 mmol/L (22-29); Chloride 109 mmol/L (98-107); Estimated GFR 46; Glucose 369 mg/dL (70-105); Potassium 4.8 mmol/L (3.5-5.1); Sodium 141 mmol/L (136-145)
[2023-01-15 15:49] LABS: #Basophils 0.1 thou/uL (0.0-0.2); #Monocytes 1.4 thou/uL (0.11-0.59); #Neutrophils 19.4 thou/uL (1.40-6.50); %Basophils 0.2 % (0.0-1.0); %Eosinophils 0.2 % (0.0-10.0); %Lymphocytes 4.6 % (21.0-51.0); %Monocytes 6.1 % (0.0-10.0); %Neutrophils 86.7 % (42.0-75.0); Hemoglobin 11.5 g/dL (14.0-18.0); Mean Corpuscular Hemoglobin 30.8 pg (27.0-31.0); Mean Corpuscular Volume 99.5 fl (78.0-98.0); Mean Platelet Volume 9.9 fL (7.4-10.4); RBC Distribution Width 13.1 % (11.5-14.5); Red Blood Cell (RBC) Count 3.73 mill/uL (4.70-6.10); White Blood Cell (WBC) Count 22.3 10x3/uL (4.8-10.8)
[2023-01-15 16:02] LABS: Platelet Count 594 10x3/uL (130-400)
[2023-01-15] MEDS: Dexmedetomidine 400 MCG, Admixture Fee 1 EACH in Sodium Chloride 0.9% 96 ML IVPB SCH ×2 (17:27→22:14)
[2023-01-15] MEDS ORDERED: Lactated Ringer's 1,000 ML IV SCH (18:00)
[2023-01-15] MEDS: NOREPINEPHRINE 8 MG/250 ML-D5W 250 ML IVPB SCH ×2 (18:27→21:39)
[2023-01-16] MEDS: HumaLOG 300 UNITS/3 ML VIAL SC PRN ×6 (01:15→21:20)
[2023-01-16] MEDS ORDERED: Albumin 25% 25 GM/100 ML BOT IVPB SCH (02:15)
[2023-01-16] MEDS ORDERED: Sodium Chloride 0.9% 500 ML IV SCH (02:15)
[2023-01-16] MEDS: Sodium Chloride 0.9% 1,000 ML IV SCH ×2 (03:20→12:30)
[2023-01-16] MEDS: Dexmedetomidine 400 MCG, Admixture Fee 1 EACH in Sodium Chloride 0.9% 96 ML IVPB SCH ×2 (03:25→08:00)
[2023-01-16] MEDS: Acetaminophen 325 MG TAB PO PRN (04:42)
[2023-01-16 04:43] LABS: #Monocytes 1.4 thou/uL (0.11-0.59); %Basophils 0.1 % (0.0-1.0); %Eosinophils 0.2 % (0.0-10.0); %Lymphocytes 16.4 % (21.0-51.0); %Monocytes 8.7 % (0.0-10.0); %Neutrophils 73.4 % (42.0-75.0); Mean Corpuscular HGB CONC 31.6 g/dL (32.0-36.0); Mean Corpuscular Hemoglobin 30.7 pg (27.0-31.0); Mean Corpuscular Volume 97.1 fl (78.0-98.0); Mean Platelet Volume 9.5 fL (7.4-10.4); RBC Distribution Width 13.1 % (11.5-14.5); White Blood Cell (WBC) Count 16.3 10x3/uL (4.8-10.8)
[2023-01-16 04:53] LABS: Hemoglobin 8.6 g/dL (14.0-18.0); Platelet Count 418 10x3/uL (130-400)
[2023-01-16] MEDS ORDERED: Piperacillin/Tazobactam 3.375 GM in Sodium Chloride 0.9% 100 ML IVPB SCH (05:00)
[2023-01-16 05:04] LABS: Anion Gap 15 mmol/L (10-20); BUN (Urea Nitrogen) 46 mg/dL (8.9-20.6); Calc. Creatinine Clearance 55 mL/min (70-130); Calcium 8.5 mg/dL (7.8-10.44); Carbon Dioxide 21 mmol/L (22-29); Chloride 112 mmol/L (98-107); Estimated GFR 30; Glucose 314 mg/dL (70-105); Potassium 4.5 mmol/L (3.5-5.1); Sodium 143 mmol/L (136-145)
[2023-01-16] MEDS: Ipratropium/Albuterol 3 ML NEB NEB SCH ×3 (06:37→18:34)
[2023-01-16] MEDS ORDERED: Lidocaine 1% w/Epinephrine 1:100K 20 ML VIAL ONE (09:28)
[2023-01-16] MEDS: Piperacillin/Tazobactam 3.375 GM in Sodium Chloride 0.9% 100 ML IVPB SCH ×2 (10:33→17:09)
[2023-01-16] MEDS: Heparin 5,000 UNITS/ML VIAL SC SCH ×2 (10:34→21:14)
[2023-01-16] MEDS: Senokot S 8.6-50 MG TAB PO SCH ×2 (10:34→21:17)
[2023-01-16] MEDS: Pantoprazole 40 MG VIAL IVP SCH (10:34)
[2023-01-16] MEDS: Insulin Glargine 30 UNITS/0.3 ML VIAL SC SCH ×2 (10:34→21:16)
[2023-01-16] MEDS ORDERED: SODIUM CHLORIDE IVPB SCH (11:15)
[2023-01-16] MEDS ORDERED: DEXMEDETOMIDINE IVPB SCH (11:15)
[2023-01-16] MEDS ORDERED: ADMIXTURE FEE IVPB SCH (11:15)
[2023-01-16] MEDS: NOREPINEPHRINE 8 MG/250 ML-D5W 250 ML IVPB SCH (12:51)
[2023-01-16] MEDS ORDERED: Furosemide 40 MG/4 ML VIAL SLOW IVP SCH (13:00)
[2023-01-16 20:20] LABS: Glucose 335 mg/dL (70-105)
[2023-01-16] MEDS: Lorazepam 2 MG/ML VIAL SLOW IVP PRN (21:17)
[2023-01-17] MEDS ORDERED: Fentanyl CADD 100 ML ONE (01:16)
[2023-01-17] MEDS: Fentanyl CADD 100 ML IV SCH (01:17)
[2023-01-17] MEDS: Piperacillin/Tazobactam 3.375 GM in Sodium Chloride 0.9% 100 ML IVPB SCH ×3 (01:20→20:24)
[2023-01-17] MEDS: Lorazepam 2 MG/ML VIAL SLOW IVP PRN ×3 (01:22→21:42)
[2023-01-17] MEDS: HumaLOG 300 UNITS/3 ML VIAL SC PRN ×3 (04:20→13:33)
[2023-01-17] MEDS: Ipratropium/Albuterol 3 ML NEB NEB SCH ×5 (06:42→23:54)
[2023-01-17 07:27] LABS: #Eosinphils 0.2 thou/uL (0.0-0.7); #Monocytes 1.5 thou/uL (0.11-0.59); #Neutrophils 13.9 thou/uL (1.40-6.50); %Basophils 0.2 % (0.0-1.0); %Eosinophils 1.1 % (0.0-10.0); %Lymphocytes 12.4 % (21.0-51.0); %Monocytes 8.2 % (0.0-10.0); %Neutrophils 77.6 % (42.0-75.0); Hemoglobin 11.1 g/dL (14.0-18.0); Mean Corpuscular HGB CONC 31.7 g/dL (32.0-36.0); Mean Corpuscular Hemoglobin 30.4 pg (27.0-31.0); Mean Corpuscular Volume 95.9 fl (78.0-98.0); Mean Platelet Volume 9.7 fL (7.4-10.4); Platelet Count 298 10x3/uL (130-400); RBC Distribution Width 15.2 % (11.5-14.5); Red Blood Cell (RBC) Count 3.65 mill/uL (4.70-6.10); White Blood Cell (WBC) Count 17.9 10x3/uL (4.8-10.8)
[2023-01-17 07:46] LABS: Actual Bicarbonate (HCO3a) 22.9 mEq/L (22-28); Base Excess (BEa) -0.9 mEq/L (-2.0 to +3.0); CO2 Tension 34.5 mmHg (35.0-45.0); Calcium, Ionized (arterial) 1.15 mmol/L (1.12-1.30); Carboxyhemoglobin (COHb) 0.1 gm% (0.0-3.0); Hematocrit-ABG 31 % (42.0-52.0); Hemoglobin (Hb) 10.7 g/dL (14.0-18.0); O2 Tension (PaO2), arterial 60.6 mmHg (80.0-100.0); Potassium - ABG Lab 3.91 mmol/L (3.70-5.30); pH, Arterial 7.439 (7.35-7.45)
[2023-01-17 07:47] LABS: Anion Gap 17 mmol/L (10-20); BUN (Urea Nitrogen) 48 mg/dL (8.9-20.6); Calc. Creatinine Clearance 61 mL/min (70-130); Calcium 8.6 mg/dL (7.8-10.44); Carbon Dioxide 19 mmol/L (22-29); Chloride 112 mmol/L (98-107); Estimated GFR 33; Glucose 324 mg/dL (70-105); Potassium 4.3 mmol/L (3.5-5.1); Sodium 144 mmol/L (136-145)
[2023-01-17 07:48] LABS: ALV-art Gradient 359.725 mmHg (0-20); Puncture Site RRA
[2023-01-17] MEDS: Heparin 5,000 UNITS/ML VIAL SC SCH ×2 (09:14→21:38)
[2023-01-17] MEDS: Pantoprazole 40 MG VIAL IVP SCH (09:14)
[2023-01-17] MEDS: Insulin Glargine 30 UNITS/0.3 ML VIAL SC SCH (09:14)
[2023-01-17] MEDS: Senokot S 8.6-50 MG TAB PO SCH ×2 (09:14→21:41)
[2023-01-17] MEDS ORDERED: methylPREDNISolone Sod Succ 40 MG VIAL IVP SCH (21:00)
[2023-01-17] MEDS: Insulin NPH Human Isophane 100 UNITS/ML (10 ML VIAL) SC SCH (21:38)
[2023-01-18] MEDS: Piperacillin/Tazobactam 3.375 GM in Sodium Chloride 0.9% 100 ML IVPB SCH ×3 (02:53→18:34)
[2023-01-18] MEDS: Ipratropium/Albuterol 3 ML NEB NEB SCH ×6 (02:55→22:28)
[2023-01-18] MEDS: HumaLOG 300 UNITS/3 ML VIAL SC PRN ×4 (04:28→20:39)
[2023-01-18 05:40] LABS: #Monocytes 0.2 thou/uL (0.11-0.59); #Neutrophils 7.6 thou/uL (1.40-6.50); %Basophils 0.1 % (0.0-1.0); %Eosinophils 0.1 % (0.0-10.0); %Lymphocytes 5.3 % (21.0-51.0); %Monocytes 2.4 % (0.0-10.0); %Neutrophils 91.7 % (42.0-75.0); Hemoglobin 9.8 g/dL (14.0-18.0); Mean Corpuscular HGB CONC 30.8 g/dL (32.0-36.0); Mean Corpuscular Hemoglobin 30.4 pg (27.0-31.0); Mean Platelet Volume 9.8 fL (7.4-10.4); Platelet Count 255 10x3/uL (130-400); RBC Distribution Width 14.9 % (11.5-14.5); Red Blood Cell (RBC) Count 3.22 mill/uL (4.70-6.10); White Blood Cell (WBC) Count 8.3 10x3/uL (4.8-10.8)
[2023-01-18 05:47] LABS: Mean Corpuscular Volume 98.8 fl (78.0-98.0)
[2023-01-18 06:01] LABS: Anion Gap 17 mmol/L (10-20); BUN (Urea Nitrogen) 37 mg/dL (8.9-20.6); Calc. Creatinine Clearance 75 mL/min (70-130); Calcium 8.8 mg/dL (7.8-10.44); Carbon Dioxide 22 mmol/L (22-29); Chloride 113 mmol/L (98-107); Estimated GFR 42; Glucose 243 mg/dL (70-105); Potassium 4.9 mmol/L (3.5-5.1); Sodium 147 mmol/L (136-145)
[2023-01-18 06:59] LABS: Actual Bicarbonate (HCO3a) 23.4 mEq/L (22-28); Base Excess (BEa) 0.1 mEq/L (-2.0 to +3.0); Calcium, Ionized (arterial) 1.14 mmol/L (1.12-1.30); Carboxyhemoglobin (COHb) 0.3 gm% (0.0-3.0); Hematocrit-ABG 30 % (42.0-52.0); Hemoglobin (Hb) 10.1 g/dL (14.0-18.0); O2 Tension (PaO2), arterial 67.1 mmHg (80.0-100.0); Potassium - ABG Lab 4.88 mmol/L (3.70-5.30); pH, Arterial 7.469 (7.35-7.45)
[2023-01-18 07:00] LABS: Puncture Site RRA
[2023-01-18] MEDS: Heparin 5,000 UNITS/ML VIAL SC SCH ×2 (08:30→20:29)
[2023-01-18] MEDS: Pantoprazole 40 MG VIAL IVP SCH (08:31)
[2023-01-18] MEDS: Insulin NPH Human Isophane 100 UNITS/ML (10 ML VIAL) SC SCH ×2 (08:31→20:39)
[2023-01-18] MEDS: Senokot S 8.6-50 MG TAB PO SCH ×2 (08:32→20:35)
[2023-01-18] MEDS: methylPREDNISolone Sod Succ/PF 125 MG/2 ML VIAL IVP SCH ×2 (10:37→20:30)
[2023-01-18] MEDS: Fentanyl CADD 100 ML IV SCH (10:39)
[2023-01-18] MEDS: Lorazepam 2 MG/ML VIAL SLOW IVP PRN (15:40)
[2023-01-18] MEDS: QUEtiapine 300 MG TAB PO SCH (20:35)
[2023-01-19] MEDS: HumaLOG 300 UNITS/3 ML VIAL SC PRN ×4 (00:05→11:53)
[2023-01-19] MEDS: Piperacillin/Tazobactam 3.375 GM in Sodium Chloride 0.9% 100 ML IVPB SCH ×3 (01:42→17:01)
[2023-01-19] MEDS: Ipratropium/Albuterol 3 ML NEB NEB SCH ×6 (03:08→21:59)
[2023-01-19] MEDS: Levothyroxine Sodium 112 MCG TAB PO SCH (05:21)
[2023-01-19 07:34] LABS: Actual Bicarbonate (HCO3a) 20.6 mEq/L (22-28); Base Excess (BEa) -2.6 mEq/L (-2.0 to +3.0); Carboxyhemoglobin (COHb) 0.3 gm% (0.0-3.0); Hematocrit-ABG 30 % (42.0-52.0); Hemoglobin (Hb) 10.2 g/dL (14.0-18.0); O2 Tension (PaO2), arterial 63.3 mmHg (80.0-100.0); Potassium - ABG Lab 4.56 mmol/L (3.70-5.30); pH, Arterial 7.454 (7.35-7.45)
[2023-01-19 07:35] LABS: Puncture Site RRA
[2023-01-19 07:58] LABS: #Monocytes 0.3 thou/uL (0.11-0.59); %Lymphocytes 9.2 % (21.0-51.0); %Monocytes 4.2 % (0.0-10.0); Mean Corpuscular HGB CONC 31.1 g/dL (32.0-36.0); Mean Corpuscular Hemoglobin 30.5 pg (27.0-31.0); Mean Platelet Volume 9.9 fL (7.4-10.4); Platelet Count 250 10x3/uL (130-400); RBC Distribution Width 14.6 % (11.5-14.5); Red Blood Cell (RBC) Count 2.95 mill/uL (4.70-6.10)
[2023-01-19 08:23] LABS: Anion Gap 18 mmol/L (10-20); BUN (Urea Nitrogen) 40 mg/dL (8.9-20.6); Calc. Creatinine Clearance 75 mL/min (70-130); Calcium 9.4 mg/dL (7.8-10.44); Carbon Dioxide 22 mmol/L (22-29); Chloride 111 mmol/L (98-107); Estimated GFR 45; Glucose 305 mg/dL (70-105); Potassium 4.7 mmol/L (3.5-5.1); Sodium 146 mmol/L (136-145)
[2023-01-19] MEDS: Insulin NPH Human Isophane 100 UNITS/ML (10 ML VIAL) SC SCH ×2 (08:39→20:43)
[2023-01-19] MEDS: Heparin 5,000 UNITS/ML VIAL SC SCH ×2 (08:39→20:44)
[2023-01-19] MEDS: FLUoxetine HCl 20 MG CAP PO SCH (08:39)
[2023-01-19] MEDS: Senokot S 8.6-50 MG TAB PO SCH ×2 (08:39→20:43)
[2023-01-19] MEDS: Pantoprazole 40 MG VIAL IVP SCH (08:39)
[2023-01-19] MEDS: Fentanyl CADD 100 ML IV SCH (17:01)
[2023-01-19] MEDS: QUEtiapine 300 MG TAB PO SCH (20:43)
[2023-01-20] MEDS: HumaLOG 300 UNITS/3 ML VIAL SC PRN ×2 (00:08→06:31)
[2023-01-20] MEDS: Ipratropium/Albuterol 3 ML NEB NEB SCH ×6 (02:11→21:58)
[2023-01-20] MEDS: Piperacillin/Tazobactam 3.375 GM in Sodium Chloride 0.9% 100 ML IVPB SCH ×3 (02:30→17:06)
[2023-01-20] MEDS ORDERED: HumaLOG 300 UNITS/3 ML VIAL SC SCH (05:45)
[2023-01-20 05:46] LABS: #Eosinphils 0.1 thou/uL (0.0-0.7); #Monocytes 0.4 thou/uL (0.11-0.59); #Neutrophils 3.8 thou/uL (1.40-6.50); %Eosinophils 0.9 % (0.0-10.0); %Lymphocytes 24.1 % (21.0-51.0); %Neutrophils 67.5 % (42.0-75.0); Hemoglobin 8.9 g/dL (14.0-18.0); Mean Corpuscular HGB CONC 30.2 g/dL (32.0-36.0); Mean Corpuscular Hemoglobin 29.9 pg (27.0-31.0); Platelet Count 237 10x3/uL (130-400); RBC Distribution Width 14.9 % (11.5-14.5); Red Blood Cell (RBC) Count 2.98 mill/uL (4.70-6.10); White Blood Cell (WBC) Count 5.7 10x3/uL (4.8-10.8)
[2023-01-20 06:09] LABS: Anion Gap 10 mmol/L (10-20); BUN (Urea Nitrogen) 35 mg/dL (8.9-20.6); Calc. Creatinine Clearance 79 mL/min (70-130); Calcium 8.8 mg/dL (7.8-10.44); Carbon Dioxide 25 mmol/L (22-29); Chloride 114 mmol/L (98-107); Estimated GFR 48; Glucose 206 mg/dL (70-105); Potassium 4.1 mmol/L (3.5-5.1); Sodium 145 mmol/L (136-145)
[2023-01-20] MEDS: Levothyroxine Sodium 112 MCG TAB PO SCH (06:34)
[2023-01-20] MEDS: Senokot S 8.6-50 MG TAB PO SCH ×2 (07:47→20:31)
[2023-01-20] MEDS: Pantoprazole 40 MG VIAL IVP SCH (07:47)
[2023-01-20] MEDS: FLUoxetine HCl 20 MG CAP PO SCH (07:47)
[2023-01-20] MEDS: Heparin 5,000 UNITS/ML VIAL SC SCH ×2 (07:49→20:24)
[2023-01-20] MEDS: Insulin NPH Human Isophane 100 UNITS/ML (10 ML VIAL) SC SCH ×2 (08:17→20:33)
[2023-01-20] MEDS ORDERED: Lorazepam 2 MG/ML VIAL ONE (18:52)
[2023-01-20] MEDS: QUEtiapine 300 MG TAB PO SCH (21:06)
[2023-01-21] MEDS: Piperacillin/Tazobactam 3.375 GM in Sodium Chloride 0.9% 100 ML IVPB SCH ×2 (01:16→09:05)
[2023-01-21] MEDS: Ipratropium/Albuterol 3 ML NEB NEB SCH ×6 (02:18→22:03)
[2023-01-21] MEDS: Levothyroxine Sodium 112 MCG TAB PO SCH (06:03)
[2023-01-21] MEDS: Pantoprazole 40 MG VIAL IVP SCH (08:35)
[2023-01-21] MEDS: Heparin 5,000 UNITS/ML VIAL SC SCH ×2 (08:35→21:02)
[2023-01-21] MEDS: Insulin NPH Human Isophane 100 UNITS/ML (10 ML VIAL) SC SCH ×2 (08:41→20:54)
[2023-01-21] MEDS: FLUoxetine HCl 20 MG CAP PO SCH (08:42)
[2023-01-21] MEDS: Senokot S 8.6-50 MG TAB PO SCH ×2 (08:42→21:02)
[2023-01-21] MEDS: HumaLOG 300 UNITS/3 ML VIAL SC PRN ×2 (13:36→19:31)
[2023-01-21] MEDS: Amoxicillin/Potassium Clav 875 MG TAB PO SCH (21:02)
[2023-01-21] MEDS: QUEtiapine 300 MG TAB PO SCH (21:03)
[2023-01-22] MEDS: HumaLOG 300 UNITS/3 ML VIAL SC PRN ×3 (01:06→12:58)
[2023-01-22] MEDS: Ipratropium/Albuterol 3 ML NEB NEB SCH ×6 (02:16→22:26)
[2023-01-22] MEDS: Levothyroxine Sodium 112 MCG TAB PO SCH (05:07)
[2023-01-22] MEDS: Amoxicillin/Potassium Clav 875 MG TAB PO SCH ×2 (09:11→20:16)
[2023-01-22] MEDS: Senokot S 8.6-50 MG TAB PO SCH ×2 (09:12→20:16)
[2023-01-22] MEDS: Heparin 5,000 UNITS/ML VIAL SC SCH ×2 (09:12→20:17)
[2023-01-22] MEDS: FLUoxetine HCl 20 MG CAP PO SCH (09:12)
[2023-01-22] MEDS: Pantoprazole 40 MG VIAL IVP SCH (09:12)
[2023-01-22] MEDS: Acetaminophen 325 MG TAB PO PRN ×3 (09:20→21:09)
[2023-01-22] MEDS: Insulin NPH Human Isophane 100 UNITS/ML (10 ML VIAL) SC SCH ×2 (09:45→20:16)
[2023-01-22] MEDS: QUEtiapine 300 MG TAB PO SCH (20:16)
[2023-01-23] MEDS: HumaLOG 300 UNITS/3 ML VIAL SC PRN ×4 (00:39→20:52)
[2023-01-23] MEDS: Ipratropium/Albuterol 3 ML NEB NEB SCH ×6 (02:34→22:21)
[2023-01-23 04:24] LABS: Hemoglobin 10.3 g/dL (14.0-18.0); Mean Corpuscular HGB CONC 30.4 g/dL (32.0-36.0); Mean Corpuscular Hemoglobin 30.7 pg (27.0-31.0); Mean Corpuscular Volume 101.2 fl (78.0-98.0); Mean Platelet Volume 9.9 fL (7.4-10.4); Platelet Count 209 10x3/uL (130-400); RBC Distribution Width 15.1 % (11.5-14.5); Red Blood Cell (RBC) Count 3.35 mill/uL (4.70-6.10); White Blood Cell (WBC) Count 7.2 10x3/uL (4.8-10.8)
[2023-01-23 04:44] LABS: Anion Gap 13 mmol/L (10-20); BUN (Urea Nitrogen) 26 mg/dL (8.9-20.6); Calc. Creatinine Clearance 96 mL/min (70-130); Calcium 8.6 mg/dL (7.8-10.44); Carbon Dioxide 20 mmol/L (22-29); Chloride 110 mmol/L (98-107); Estimated GFR 59; Glucose 292 mg/dL (70-105); Magnesium 1.7 mg/dL (1.6-2.6); Phosphorus 3.1 mg/dL (2.3-4.7); Sodium 139 mmol/L (136-145)
[2023-01-23] MEDS: Levothyroxine Sodium 112 MCG TAB PO SCH (05:11)
[2023-01-23] MEDS: Acetaminophen 325 MG TAB PO PRN ×2 (05:11→18:33)
[2023-01-23] MEDS ORDERED: Magnesium 2 GM/50 ML(in water) 2 GM in Premix Bag 1 BAG IVPB SCH (08:00)
[2023-01-23] MEDS: FLUoxetine HCl 20 MG CAP PO SCH (09:01)
[2023-01-23] MEDS: Amoxicillin/Potassium Clav 875 MG TAB PO SCH ×2 (09:01→20:54)
[2023-01-23] MEDS: Heparin 5,000 UNITS/ML VIAL SC SCH ×2 (09:02→20:54)
[2023-01-23] MEDS: Senokot S 8.6-50 MG TAB PO SCH ×2 (09:02→21:00)
[2023-01-23] MEDS: Insulin NPH Human Isophane 100 UNITS/ML (10 ML VIAL) SC SCH ×2 (09:02→20:52)
[2023-01-23] MEDS: Pantoprazole 40 MG VIAL IVP SCH (09:02)
[2023-01-23] MEDS: QUEtiapine 300 MG TAB PO SCH (20:55)
[2023-01-24] MEDS: Ipratropium/Albuterol 3 ML NEB NEB SCH ×6 (02:40→22:10)
[2023-01-24] MEDS: Acetaminophen 325 MG TAB PO PRN ×4 (04:20→18:36)
[2023-01-24] MEDS: Levothyroxine Sodium 112 MCG TAB PO SCH (04:21)
[2023-01-24] MEDS: Amoxicillin/Potassium Clav 875 MG TAB PO SCH (10:04)
[2023-01-24] MEDS: Heparin 5,000 UNITS/ML VIAL SC SCH ×2 (10:04→21:54)
[2023-01-24] MEDS: FLUoxetine HCl 20 MG CAP PO SCH (10:04)
[2023-01-24] MEDS: Pantoprazole 40 MG VIAL IVP SCH (10:05)
[2023-01-24] MEDS: Senokot S 8.6-50 MG TAB PO SCH ×2 (10:05→21:09)
[2023-01-24] MEDS: Insulin NPH Human Isophane 100 UNITS/ML (10 ML VIAL) SC SCH ×2 (12:24→21:53)
[2023-01-24] MEDS: QUEtiapine 300 MG TAB PO SCH (21:54)
[2023-01-25] MEDS: Ipratropium/Albuterol 3 ML NEB NEB SCH ×6 (02:15→21:59)
[2023-01-25 04:13] LABS: Anion Gap 12 mmol/L (10-20); BUN (Urea Nitrogen) 20 mg/dL (8.9-20.6); Calc. Creatinine Clearance 107 mL/min (70-130); Calcium 8.8 mg/dL (7.8-10.44); Carbon Dioxide 24 mmol/L (22-29); Chloride 106 mmol/L (98-107); Estimated GFR 68; Glucose 233 mg/dL (70-105); Magnesium 1.6 mg/dL (1.6-2.6); Sodium 138 mmol/L (136-145)
[2023-01-25] MEDS: Levothyroxine Sodium 112 MCG TAB PO SCH (06:20)
[2023-01-25] MEDS: HumaLOG 300 UNITS/3 ML VIAL SC PRN (06:20)
[2023-01-25] MEDS ORDERED: Magnesium 2 GM/50 ML(in water) 2 GM in Premix Bag 1 BAG IVPB SCH (06:45)
[2023-01-25] MEDS: FLUoxetine HCl 20 MG CAP PO SCH (08:38)
[2023-01-25] MEDS: Heparin 5,000 UNITS/ML VIAL SC SCH ×2 (08:38→22:03)
[2023-01-25] MEDS: Pantoprazole 40 MG VIAL IVP SCH (08:39)
[2023-01-25] MEDS: Senokot S 8.6-50 MG TAB PO SCH ×2 (08:39→22:04)
[2023-01-25] MEDS: Acetaminophen 325 MG TAB PO PRN ×3 (08:51→22:03)
[2023-01-25] MEDS: Insulin NPH Human Isophane 100 UNITS/ML (10 ML VIAL) SC SCH ×2 (08:53→22:06)
[2023-01-25] MEDS: QUEtiapine 300 MG TAB PO SCH (22:04)
[2023-01-26] MEDS: Ipratropium/Albuterol 3 ML NEB NEB SCH ×6 (02:55→21:47)
[2023-01-26] MEDS: HumaLOG 300 UNITS/3 ML VIAL SC PRN (03:51)
[2023-01-26] MEDS: Levothyroxine Sodium 112 MCG TAB PO SCH (05:24)
[2023-01-26] MEDS: Acetaminophen 325 MG TAB PO PRN ×2 (05:24→20:38)
[2023-01-26 06:17] LABS: Hemoglobin 10.4 g/dL (14.0-18.0); Mean Corpuscular HGB CONC 31.4 g/dL (32.0-36.0); Mean Corpuscular Hemoglobin 31.1 pg (27.0-31.0); Mean Corpuscular Volume 99.1 fl (78.0-98.0); Mean Platelet Volume 10.2 fL (7.4-10.4); Platelet Count 226 10x3/uL (130-400); RBC Distribution Width 15.7 % (11.5-14.5); Red Blood Cell (RBC) Count 3.34 mill/uL (4.70-6.10); White Blood Cell (WBC) Count 5.3 10x3/uL (4.8-10.8)
[2023-01-26 06:38] LABS: Anion Gap 14 mmol/L (10-20); BUN (Urea Nitrogen) 20 mg/dL (8.9-20.6); Calc. Creatinine Clearance 110 mL/min (70-130); Calcium 8.8 mg/dL (7.8-10.44); Carbon Dioxide 23 mmol/L (22-29); Chloride 105 mmol/L (98-107); Estimated GFR 70; Glucose 197 mg/dL (70-105); Magnesium 2.1 mg/dL (1.6-2.6); Potassium 3.9 mmol/L (3.5-5.1); Sodium 138 mmol/L (136-145)
[2023-01-26] MEDS: Senokot S 8.6-50 MG TAB PO SCH ×2 (08:27→20:39)
[2023-01-26] MEDS: Insulin NPH Human Isophane 100 UNITS/ML (10 ML VIAL) SC SCH ×2 (08:27→22:29)
[2023-01-26] MEDS: FLUoxetine HCl 20 MG CAP PO SCH (08:27)
[2023-01-26] MEDS: Heparin 5,000 UNITS/ML VIAL SC SCH ×2 (08:27→20:39)
[2023-01-26] MEDS: Pantoprazole 40 MG VIAL IVP SCH (08:27)
[2023-01-26] MEDS: QUEtiapine 300 MG TAB PO SCH (20:39)
[2023-01-27] MEDS: Ipratropium/Albuterol 3 ML NEB NEB SCH ×6 (01:50→21:46)
[2023-01-27] MEDS: Acetaminophen 325 MG TAB PO PRN ×3 (05:11→15:18)
[2023-01-27] MEDS: Levothyroxine Sodium 112 MCG TAB PO SCH (05:12)
[2023-01-27] MEDS: HumaLOG 300 UNITS/3 ML VIAL SC PRN ×2 (05:12→12:24)
[2023-01-27] MEDS: Heparin 5,000 UNITS/ML VIAL SC SCH ×2 (08:24→20:49)
[2023-01-27] MEDS: Pantoprazole 40 MG VIAL IVP SCH (08:24)
[2023-01-27] MEDS: Senokot S 8.6-50 MG TAB PO SCH ×2 (08:24→19:53)
[2023-01-27] MEDS: FLUoxetine HCl 20 MG CAP PO SCH (08:24)
[2023-01-27] MEDS: Insulin NPH Human Isophane 100 UNITS/ML (10 ML VIAL) SC SCH ×2 (08:25→20:49)
[2023-01-27 11:39] LABS: CO2 Tension 65.3 mmHg (35.0-45.0); pH, Arterial 7.043 (7.35-7.45)
[2023-01-27] MEDS: Sodium Chloride 0.9% 1,000 ML IV SCH (15:19)
[2023-01-27] MEDS: QUEtiapine 300 MG TAB PO SCH (20:49)
[2023-01-28] MEDS: Ipratropium/Albuterol 3 ML NEB NEB SCH ×6 (01:43→22:30)
[2023-01-28] MEDS: HumaLOG 300 UNITS/3 ML VIAL SC PRN ×2 (04:22→11:56)
[2023-01-28] MEDS: Levothyroxine Sodium 112 MCG TAB PO SCH (04:24)
[2023-01-28 06:43] LABS: #Eosinphils 0.2 thou/uL (0.0-0.7); #Monocytes 0.6 thou/uL (0.11-0.59); #Neutrophils 2.2 thou/uL (1.40-6.50); %Basophils 0.5 % (0.0-1.0); %Eosinophils 5.7 % (0.0-10.0); %Lymphocytes 20.3 % (21.0-51.0); %Monocytes 15.6 % (0.0-10.0); %Neutrophils 57.4 % (42.0-75.0); Hemoglobin 9.7 g/dL (14.0-18.0); Mean Corpuscular HGB CONC 30.8 g/dL (32.0-36.0); Mean Corpuscular Volume 100.6 fl (78.0-98.0); Mean Platelet Volume 9.8 fL (7.4-10.4); Platelet Count 213 10x3/uL (130-400); RBC Distribution Width 15.6 % (11.5-14.5); Red Blood Cell (RBC) Count 3.13 mill/uL (4.70-6.10); White Blood Cell (WBC) Count 3.9 10x3/uL (4.8-10.8)
[2023-01-28 07:14] LABS: ALT (SGPT) 27 U/L (8-55); AST (SGOT) 11 U/L (5-34); Albumin 2.8 g/dL (3.5-5.0); Alkaline Phosphatase 110 U/L (40-110); Anion Gap 13 mmol/L (10-20); BUN (Urea Nitrogen) 20 mg/dL (8.9-20.6); Bilirubin, Total 0.3 mg/dL (0.2-1.2); Calc. Creatinine Clearance 123 mL/min (70-130); Calcium 8.6 mg/dL (7.8-10.44); Carbon Dioxide 25 mmol/L (22-29); Chloride 105 mmol/L (98-107); Estimated GFR 80; Globulin 2.9 g/dL (2.4-3.5); Glucose 224 mg/dL (70-105); Potassium 3.7 mmol/L (3.5-5.1); Protein, Total 5.7 g/dL (6.0-8.3); Sodium 139 mmol/L (136-145)
[2023-01-28] MEDS: Heparin 5,000 UNITS/ML VIAL SC SCH ×2 (08:23→21:05)
[2023-01-28] MEDS: Pantoprazole 40 MG VIAL IVP SCH (08:23)
[2023-01-28] MEDS: Acetaminophen 325 MG TAB PO PRN ×3 (08:24→21:06)
[2023-01-28] MEDS: FLUoxetine HCl 20 MG CAP PO SCH (08:24)
[2023-01-28] MEDS: Senokot S 8.6-50 MG TAB PO SCH ×2 (08:24→21:06)
[2023-01-28] MEDS: Insulin NPH Human Isophane 100 UNITS/ML (10 ML VIAL) SC SCH ×2 (08:25→21:21)
[2023-01-28] MEDS: Sodium Chloride 0.9% 1,000 ML IV SCH (11:56)
[2023-01-28] MEDS: Cefepime 2 GM in Sodium Chloride 0.9% 100 ML IVPB SCH (21:05)
[2023-01-28] MEDS: QUEtiapine 300 MG TAB PO SCH (21:06)
[2023-01-28] MEDS: metroNIDAZOLE 500 MG in Premix Bag 1 BAG IVPB SCH (21:06)
[2023-01-29] MEDS: Ipratropium/Albuterol 3 ML NEB NEB SCH ×6 (03:56→22:26)
[2023-01-29] MEDS: Levothyroxine Sodium 112 MCG TAB PO SCH (04:57)
[2023-01-29] MEDS: metroNIDAZOLE 500 MG in Premix Bag 1 BAG IVPB SCH ×3 (04:57→22:08)
[2023-01-29] MEDS: Sodium Chloride 0.9% 1,000 ML IV SCH ×2 (06:04→13:09)
[2023-01-29 07:13] LABS: #Eosinphils 0.2 thou/uL (0.0-0.7); #Monocytes 0.7 thou/uL (0.11-0.59); #Neutrophils 2.9 thou/uL (1.40-6.50); %Basophils 0.4 % (0.0-1.0); %Eosinophils 4.8 % (0.0-10.0); %Lymphocytes 15.1 % (21.0-51.0); %Monocytes 15.5 % (0.0-10.0); %Neutrophils 63.8 % (42.0-75.0); Hemoglobin 9.6 g/dL (14.0-18.0); Mean Corpuscular HGB CONC 30.2 g/dL (32.0-36.0); Mean Corpuscular Hemoglobin 30.9 pg (27.0-31.0); Mean Corpuscular Volume 102.3 fl (78.0-98.0); Mean Platelet Volume 9.8 fL (7.4-10.4); Platelet Count 214 10x3/uL (130-400); RBC Distribution Width 15.8 % (11.5-14.5); Red Blood Cell (RBC) Count 3.11 mill/uL (4.70-6.10); White Blood Cell (WBC) Count 4.6 10x3/uL (4.8-10.8)
[2023-01-29 07:35] LABS: ALT (SGPT) 24 U/L (8-55); AST (SGOT) 13 U/L (5-34); Albumin 2.8 g/dL (3.5-5.0); Alkaline Phosphatase 112 U/L (40-110); Anion Gap 8 mmol/L (10-20); BUN (Urea Nitrogen) 17 mg/dL (8.9-20.6); Bilirubin, Total 0.3 mg/dL (0.2-1.2); Calc. Creatinine Clearance 132 mL/min (70-130); Calcium 8.6 mg/dL (7.8-10.44); Carbon Dioxide 25 mmol/L (22-29); Chloride 105 mmol/L (98-107); Estimated GFR 88; Globulin 2.9 g/dL (2.4-3.5); Glucose 217 mg/dL (70-105); Protein, Total 5.7 g/dL (6.0-8.3); Sodium 134 mmol/L (136-145)
[2023-01-29] MEDS: Cefepime 2 GM in Sodium Chloride 0.9% 100 ML IVPB SCH ×2 (08:29→20:09)
[2023-01-29] MEDS: Pantoprazole 40 MG VIAL IVP SCH (08:29)
[2023-01-29] MEDS: Heparin 5,000 UNITS/ML VIAL SC SCH ×2 (08:30→20:09)
[2023-01-29] MEDS: Insulin NPH Human Isophane 100 UNITS/ML (10 ML VIAL) SC SCH (08:31)
[2023-01-29] MEDS: FLUoxetine HCl 20 MG CAP PO SCH (08:32)
[2023-01-29] MEDS: Acetaminophen 325 MG TAB PO PRN (08:32)
[2023-01-29] MEDS: Senokot S 8.6-50 MG TAB PO SCH ×2 (08:33→20:09)
[2023-01-29] MEDS: Dextrose 50% Abboject 50 ML SYRINGE SLOW IVP PRN ×2 (16:30→17:19)
[2023-01-29] MEDS ORDERED: Dextrose 5% in Water 1,000 ML IV SCH ×2 (18:00→20:04)
[2023-01-29] MEDS: QUEtiapine 300 MG TAB PO SCH (20:09)
[2023-01-30] MEDS: Ipratropium/Albuterol 3 ML NEB NEB SCH ×6 (02:22→22:07)
[2023-01-30 04:28] LABS: #Eosinphils 0.2 thou/uL (0.0-0.7); #Monocytes 0.6 thou/uL (0.11-0.59); #Neutrophils 2.8 thou/uL (1.40-6.50); %Basophils 0.7 % (0.0-1.0); %Eosinophils 4.9 % (0.0-10.0); %Lymphocytes 18.9 % (21.0-51.0); %Monocytes 13.6 % (0.0-10.0); %Neutrophils 61.5 % (42.0-75.0); Hemoglobin 9.4 g/dL (14.0-18.0); Mean Corpuscular HGB CONC 31.1 g/dL (32.0-36.0); Mean Corpuscular Hemoglobin 30.7 pg (27.0-31.0); Mean Platelet Volume 10.3 fL (7.4-10.4); Platelet Count 235 10x3/uL (130-400); RBC Distribution Width 15.8 % (11.5-14.5); Red Blood Cell (RBC) Count 3.06 mill/uL (4.70-6.10); White Blood Cell (WBC) Count 4.5 10x3/uL (4.8-10.8)
[2023-01-30 04:30] LABS: Mean Corpuscular Volume 98.7 fl (78.0-98.0)
[2023-01-30 04:49] LABS: ALT (SGPT) 23 U/L (8-55); AST (SGOT) 21 U/L (5-34); Albumin 2.8 g/dL (3.5-5.0); Alkaline Phosphatase 111 U/L (40-110); Anion Gap 13 mmol/L (10-20); BUN (Urea Nitrogen) 16 mg/dL (8.9-20.6); Bilirubin, Total 0.3 mg/dL (0.2-1.2); Calc. Creatinine Clearance 126 mL/min (70-130); Calcium 8.6 mg/dL (7.8-10.44); Carbon Dioxide 22 mmol/L (22-29); Chloride 104 mmol/L (98-107); Estimated GFR 83; Globulin 3.1 g/dL (2.4-3.5); Glucose 203 mg/dL (70-105); Potassium 3.9 mmol/L (3.5-5.1); Protein, Total 5.9 g/dL (6.0-8.3); Sodium 135 mmol/L (136-145)
[2023-01-30] MEDS: Levothyroxine Sodium 112 MCG TAB PO SCH (05:53)
[2023-01-30] MEDS: metroNIDAZOLE 500 MG in Premix Bag 1 BAG IVPB SCH ×3 (05:53→21:56)
[2023-01-30] MEDS: Saccharomyces boulardii 250 MG CAP PO SCH (08:15)
[2023-01-30] MEDS: Senokot S 8.6-50 MG TAB PO SCH ×2 (08:15→21:57)
[2023-01-30] MEDS: FLUoxetine HCl 20 MG CAP PO SCH (08:15)
[2023-01-30] MEDS: Cefepime 2 GM in Sodium Chloride 0.9% 100 ML IVPB SCH ×2 (08:15→21:57)
[2023-01-30] MEDS: Acetaminophen 325 MG TAB PO PRN ×2 (08:15→18:57)
[2023-01-30] MEDS: Pantoprazole 40 MG VIAL IVP SCH (08:15)
[2023-01-30] MEDS: Heparin 5,000 UNITS/ML VIAL SC SCH ×2 (08:15→21:57)
[2023-01-30] MEDS ORDERED: Dextrose 50% Abboject 50 ML SYRINGE SLOW IVP PRN (11:53)
[2023-01-30] MEDS ORDERED: HumaLOG 300 UNITS/3 ML VIAL SC PRN (11:53)
[2023-01-30] MEDS ORDERED: Dextrose 5% in Water 1,000 ML IV PRN (11:53)
[2023-01-30] MEDS ORDERED: Glucagon 1 MG/ML KIT IM PRN (11:53)
[2023-01-30] MEDS: Dextrose 5% in Water 1,000 ML IV SCH (16:36)
[2023-01-30] MEDS: QUEtiapine 300 MG TAB PO SCH (21:57)
[2023-01-31] MEDS: Ipratropium/Albuterol 3 ML NEB NEB SCH ×6 (02:02→22:43)
[2023-01-31] MEDS: Levothyroxine Sodium 112 MCG TAB PO SCH (06:06)
[2023-01-31] MEDS: metroNIDAZOLE 500 MG in Premix Bag 1 BAG IVPB SCH ×3 (06:10→21:46)
[2023-01-31 08:55] LABS: #Eosinphils 0.3 thou/uL (0.0-0.7); #Monocytes 0.8 thou/uL (0.11-0.59); #Neutrophils 2.8 thou/uL (1.40-6.50); %Basophils 0.9 % (0.0-1.0); %Eosinophils 5.6 % (0.0-10.0); %Lymphocytes 16.1 % (21.0-51.0); %Monocytes 16.9 % (0.0-10.0); %Neutrophils 60.1 % (42.0-75.0); Hemoglobin 10.2 g/dL (14.0-18.0); Mean Corpuscular HGB CONC 30.8 g/dL (32.0-36.0); Mean Corpuscular Hemoglobin 31.2 pg (27.0-31.0); Mean Corpuscular Volume 101.2 fl (78.0-98.0); Mean Platelet Volume 9.6 fL (7.4-10.4); Platelet Count 274 10x3/uL (130-400); RBC Distribution Width 15.4 % (11.5-14.5); Red Blood Cell (RBC) Count 3.27 mill/uL (4.70-6.10); White Blood Cell (WBC) Count 4.7 10x3/uL (4.8-10.8)
[2023-01-31 09:17] LABS: ALT (SGPT) 21 U/L (8-55); AST (SGOT) 15 U/L (5-34); Albumin 3.1 g/dL (3.5-5.0); Alkaline Phosphatase 113 U/L (40-110); Anion Gap 11 mmol/L (10-20); BUN (Urea Nitrogen) 13 mg/dL (8.9-20.6); Bilirubin, Total 0.4 mg/dL (0.2-1.2); Calc. Creatinine Clearance 139 mL/min (70-130); Carbon Dioxide 24 mmol/L (22-29); Chloride 102 mmol/L (98-107); Estimated GFR 94; Globulin 3.1 g/dL (2.4-3.5); Glucose 186 mg/dL (70-105); Potassium 4.2 mmol/L (3.5-5.1); Protein, Total 6.2 g/dL (6.0-8.3); Sodium 133 mmol/L (136-145)
[2023-01-31] MEDS: Pantoprazole 40 MG VIAL IVP SCH (09:37)
[2023-01-31] MEDS: Cefepime 2 GM in Sodium Chloride 0.9% 100 ML IVPB SCH ×2 (09:37→21:46)
[2023-01-31] MEDS: FLUoxetine HCl 20 MG CAP PO SCH (09:37)
[2023-01-31] MEDS: Saccharomyces boulardii 250 MG CAP PO SCH (09:38)
[2023-01-31] MEDS: Heparin 5,000 UNITS/ML VIAL SC SCH ×2 (09:38→21:46)
[2023-01-31] MEDS: Senokot S 8.6-50 MG TAB PO SCH ×2 (09:38→21:46)
[2023-01-31] MEDS: Dextrose 5% in Water 1,000 ML IV SCH (11:59)
[2023-01-31] MEDS: HumaLOG 300 UNITS/3 ML VIAL SC PRN (17:28)
[2023-01-31] MEDS: Acetaminophen 325 MG TAB PO PRN (17:28)
[2023-01-31] MEDS: QUEtiapine 300 MG TAB PO SCH (21:46)
[2023-02-01] MEDS: Ipratropium/Albuterol 3 ML NEB NEB SCH ×6 (03:44→23:13)
[2023-02-01] MEDS: Levothyroxine Sodium 112 MCG TAB PO SCH (05:00)
[2023-02-01] MEDS: metroNIDAZOLE 500 MG in Premix Bag 1 BAG IVPB SCH ×3 (05:01→21:48)
[2023-02-01] MEDS: Acetaminophen 325 MG TAB PO PRN ×2 (05:01→10:09)
[2023-02-01 07:05] LABS: #Eosinphils 0.2 thou/uL (0.0-0.7); #Monocytes 0.7 thou/uL (0.11-0.59); #Neutrophils 2.4 thou/uL (1.40-6.50); %Eosinophils 5.5 % (0.0-10.0); %Monocytes 17.5 % (0.0-10.0); %Neutrophils 60.5 % (42.0-75.0); Hemoglobin 9.5 g/dL (14.0-18.0); Mean Corpuscular HGB CONC 31.7 g/dL (32.0-36.0); Mean Corpuscular Hemoglobin 31.3 pg (27.0-31.0); Mean Corpuscular Volume 98.7 fl (78.0-98.0); Mean Platelet Volume 9.5 fL (7.4-10.4); Platelet Count 246 10x3/uL (130-400); RBC Distribution Width 15.1 % (11.5-14.5); Red Blood Cell (RBC) Count 3.04 mill/uL (4.70-6.10)
[2023-02-01 07:31] LABS: ALT (SGPT) 18 U/L (8-55); AST (SGOT) 14 U/L (5-34); Albumin 2.8 g/dL (3.5-5.0); Alkaline Phosphatase 101 U/L (40-110); Anion Gap 12 mmol/L (10-20); BUN (Urea Nitrogen) 15 mg/dL (8.9-20.6); Bilirubin, Total 0.4 mg/dL (0.2-1.2); Calc. Creatinine Clearance 124 mL/min (70-130); Calcium 8.6 mg/dL (7.8-10.44); Carbon Dioxide 22 mmol/L (22-29); Chloride 105 mmol/L (98-107); Estimated GFR 82; Glucose 237 mg/dL (70-105); Potassium 3.9 mmol/L (3.5-5.1); Protein, Total 5.8 g/dL (6.0-8.3); Sodium 135 mmol/L (136-145)
[2023-02-01] MEDS: Dextrose 5% in Water 1,000 ML IV SCH (09:25)
[2023-02-01] MEDS: FLUoxetine HCl 20 MG CAP PO SCH (10:05)
[2023-02-01] MEDS: Saccharomyces boulardii 250 MG CAP PO SCH (10:05)
[2023-02-01] MEDS: Pantoprazole 40 MG VIAL IVP SCH (10:05)
[2023-02-01] MEDS: Cefepime 2 GM in Sodium Chloride 0.9% 100 ML IVPB SCH ×2 (10:06→21:48)
[2023-02-01] MEDS: Senokot S 8.6-50 MG TAB PO SCH ×2 (10:06→21:45)
[2023-02-01] MEDS: Cyanocobalamin (Vitamin B-12) 1,000 MCG TAB PO SCH (10:06)
[2023-02-01] MEDS: Folic Acid 1 MG TAB PO SCH (10:06)
[2023-02-01] MEDS: Heparin 5,000 UNITS/ML VIAL SC SCH ×2 (10:06→21:48)
[2023-02-01] MEDS: HumaLOG 300 UNITS/3 ML VIAL SC PRN ×2 (12:38→17:21)
[2023-02-01] MEDS: Acetaminophen 650 MG/20.3 ML UDCUP PO PRN ×2 (17:21→22:34)
[2023-02-01] MEDS: QUEtiapine 300 MG TAB PO SCH (21:48)
[2023-02-02] MEDS: Ipratropium/Albuterol 3 ML NEB NEB SCH ×6 (02:00→23:58)
[2023-02-02] MEDS: Levothyroxine Sodium 112 MCG TAB PO SCH (06:10)
[2023-02-02] MEDS: metroNIDAZOLE 500 MG in Premix Bag 1 BAG IVPB SCH ×3 (06:10→21:46)
[2023-02-02] MEDS: Cefepime 2 GM in Sodium Chloride 0.9% 100 ML IVPB SCH ×2 (10:07→20:39)
[2023-02-02] MEDS: Acetaminophen 650 MG/20.3 ML UDCUP PO PRN ×2 (10:45→21:05)
[2023-02-02] MEDS: Heparin 5,000 UNITS/ML VIAL SC SCH ×2 (10:46→20:40)
[2023-02-02] MEDS: FLUoxetine HCl 20 MG CAP PO SCH (10:47)
[2023-02-02] MEDS: Folic Acid 1 MG TAB PO SCH (10:47)
[2023-02-02] MEDS: Senokot S 8.6-50 MG TAB PO SCH ×2 (10:48→20:40)
[2023-02-02] MEDS: Saccharomyces boulardii 250 MG CAP PO SCH (10:48)
[2023-02-02] MEDS: Cyanocobalamin (Vitamin B-12) 1,000 MCG TAB PO SCH (10:48)
[2023-02-02] MEDS: Pantoprazole 40 MG VIAL IVP SCH (10:54)
[2023-02-02] MEDS: HumaLOG 300 UNITS/3 ML VIAL SC PRN (12:43)
[2023-02-02] MEDS: QUEtiapine 300 MG TAB PO SCH (20:40)
[2023-02-03] MEDS: Ipratropium/Albuterol 3 ML NEB NEB SCH ×6 (03:58→23:14)
[2023-02-03] MEDS: metroNIDAZOLE 500 MG in Premix Bag 1 BAG IVPB SCH ×3 (05:31→22:38)
[2023-02-03] MEDS: Levothyroxine Sodium 112 MCG TAB PO SCH (05:32)
[2023-02-03] MEDS: HumaLOG 300 UNITS/3 ML VIAL SC PRN ×3 (05:32→18:06)
[2023-02-03 07:09] LABS: Hemoglobin 10.2 g/dL (14.0-18.0); Mean Corpuscular HGB CONC 30.9 g/dL (32.0-36.0); Mean Corpuscular Hemoglobin 31.3 pg (27.0-31.0); Mean Corpuscular Volume 101.2 fl (78.0-98.0); Mean Platelet Volume 9.6 fL (7.4-10.4); Platelet Count 291 10x3/uL (130-400); RBC Distribution Width 15.4 % (11.5-14.5); Red Blood Cell (RBC) Count 3.26 mill/uL (4.70-6.10); White Blood Cell (WBC) Count 3.7 10x3/uL (4.8-10.8)
[2023-02-03 07:32] LABS: Anion Gap 13 mmol/L (10-20); BUN (Urea Nitrogen) 13 mg/dL (8.9-20.6); Calc. Creatinine Clearance 134 mL/min (70-130); Calcium 8.9 mg/dL (7.8-10.44); Carbon Dioxide 21 mmol/L (22-29); Chloride 107 mmol/L (98-107); Estimated GFR 87; Glucose 200 mg/dL (70-105); Potassium 4.1 mmol/L (3.5-5.1); Sodium 137 mmol/L (136-145)
[2023-02-03 09:34] VITALS: BMI 33.2
[2023-02-03] MEDS: Cefepime 2 GM in Sodium Chloride 0.9% 100 ML IVPB SCH ×2 (11:32→21:09)
[2023-02-03] MEDS: Heparin 5,000 UNITS/ML VIAL SC SCH ×2 (11:35→21:10)
[2023-02-03] MEDS: FLUoxetine HCl 20 MG CAP PO SCH (11:36)
[2023-02-03] MEDS: Folic Acid 1 MG TAB PO SCH (11:36)
[2023-02-03] MEDS: Cyanocobalamin (Vitamin B-12) 1,000 MCG TAB PO SCH (11:36)
[2023-02-03] MEDS: Saccharomyces boulardii 250 MG CAP PO SCH (11:36)
[2023-02-03] MEDS: Senokot S 8.6-50 MG TAB PO SCH ×2 (11:36→21:09)
[2023-02-03] MEDS: Acetaminophen 650 MG/20.3 ML UDCUP PO PRN (12:24)
[2023-02-03] MEDS: Pantoprazole 40 MG VIAL IVP SCH (12:54)
[2023-02-03] MEDS: QUEtiapine 300 MG TAB PO SCH (21:09)
[2023-02-04] MEDS: Ipratropium/Albuterol 3 ML NEB NEB SCH ×4 (02:43→14:24)
[2023-02-04] MEDS: Levothyroxine Sodium 112 MCG TAB PO SCH (05:40)
[2023-02-04] MEDS: HumaLOG 300 UNITS/3 ML VIAL SC PRN ×2 (05:40→12:31)
[2023-02-04 08:01] VITALS: BP 120/85; TEMP 97.4
[2023-02-04] MEDS: Saccharomyces boulardii 250 MG CAP PO SCH (08:53)
[2023-02-04] MEDS: Heparin 5,000 UNITS/ML VIAL SC SCH (08:53)
[2023-02-04] MEDS: Folic Acid 1 MG TAB PO SCH (08:53)
[2023-02-04] MEDS: Senokot S 8.6-50 MG TAB PO SCH (08:53)
[2023-02-04] MEDS: Cyanocobalamin (Vitamin B-12) 1,000 MCG TAB PO SCH (08:53)
[2023-02-04] MEDS: FLUoxetine HCl 20 MG CAP PO SCH (08:53)
[2023-02-04] MEDS: Pantoprazole 40 MG VIAL IVP SCH (08:53)
== END 2023-02-04 15:02 | DRG 870 ==
LOC: ERS 01:04 → EDBD 01:04 → CCU 03:42 → IMCU/EMU 01-21 15:07 → T4-A 01-25 18:26 → IMCU/EMU 01-29 18:39 → T4-A 01-30 15:01
PROVIDERS: ADMIT Internal Medicine; ATTEND Internal Medicine
PROC: 0D9670Z Drainage of Stomach with Drainage Device, Via Natural or Artificial Opening (ICD-10-PCS; principal; 2023-01-03)
PROC: 3E03329 Introduction of Other Anti-infective into Peripheral Vein, Percutaneous Approach (ICD-10-PCS; 2023-01-03)
PROC: 5A1955Z Respiratory Ventilation, Greater than 96 Consecutive Hours (ICD-10-PCS; 2023-01-03)
PROC: 4A033R1 Measurement of Arterial Saturation, Peripheral, Percutaneous Approach (ICD-10-PCS; 2023-01-12)
PROC: 5A09357 Assistance with Respiratory Ventilation, Less than 24 Consecutive Hours, Continuous Positive Airway Pressure (ICD-10-PCS; 2023-01-12)
PROC: 3E033XZ Introduction of Vasopressor into Peripheral Vein, Percutaneous Approach (ICD-10-PCS; 2023-01-15)
PROC: 5A1955Z Respiratory Ventilation, Greater than 96 Consecutive Hours (ICD-10-PCS; 2023-01-15)
PROC: 0BH17EZ Insertion of Endotracheal Airway into Trachea, Via Natural or Artificial Opening (ICD-10-PCS; 2023-01-15)
PROC: 0W9B30Z Drainage of Left Pleural Cavity with Drainage Device, Percutaneous Approach (ICD-10-PCS; 2023-01-16)
PROC: 30233N1 Transfusion of Nonautologous Red Blood Cells into Peripheral Vein, Percutaneous Approach (ICD-10-PCS; 2023-01-16)
PROC: 30233J1 Transfusion of Nonautologous Serum Albumin into Peripheral Vein, Percutaneous Approach (ICD-10-PCS; 2023-01-16)
PROC: 5A09357 Assistance with Respiratory Ventilation, Less than 24 Consecutive Hours, Continuous Positive Airway Pressure (ICD-10-PCS; 2023-01-20)
DX: A41.9 Sepsis, unspecified organism (principal); G93.41 Metabolic encephalopathy; J18.9 Pneumonia, unspecified organism; J80 Acute respiratory distress syndrome; R57.8 Other shock; J69.0 Pneumonitis due to inhalation of food and vomit; J44.0 Chronic obstructive pulmonary disease with (acute) lower respiratory infection; J44.1 Chronic obstructive pulmonary disease with (acute) exacerbation; N17.9 Acute kidney failure, unspecified; M62.82 Rhabdomyolysis; E87.4 Mixed disorder of acid-base balance; D68.9 Coagulation defect, unspecified; E87.0 Hyperosmolality and hypernatremia; J93.83 Other pneumothorax; J94.2 Hemothorax; E87.1 Hypo-osmolality and hyponatremia; J90 Pleural effusion, not elsewhere classified; R65.20 Severe sepsis without septic shock; I12.9 Hypertensive chronic kidney disease with stage 1 through stage 4 chronic kidney disease, or unspecified chronic kidney disease; N18.30 Chronic kidney disease, stage 3 unspecified; G47.33 Obstructive sleep apnea (adult) (pediatric); M10.9 Gout, unspecified; E11.22 Type 2 diabetes mellitus with diabetic chronic kidney disease; F31.9 Bipolar disorder, unspecified; E87.5 Hyperkalemia; F79 Unspecified intellectual disabilities; E66.9 Obesity, unspecified; E11.65 Type 2 diabetes mellitus with hyperglycemia; Z68.33 Body mass index [BMI] 33.0-33.9, adult; E87.6 Hypokalemia; E88.09 Other disorders of plasma-protein metabolism, not elsewhere classified; E87.8 Other disorders of electrolyte and fluid balance, not elsewhere classified; K59.00 Constipation, unspecified; R13.12 Dysphagia, oropharyngeal phase; E11.649 Type 2 diabetes mellitus with hypoglycemia without coma; Z20.822 Contact with and (suspected) exposure to COVID-19
CPT/HCPCS: 31500; 36415; 36416; 36430; 36600; 51702; 70450; 71045; 71275; 74018; 74230; 76700; 76856; 80048; 80053; 80202; 80306; 81003; 81015; 82550; 82805; 83036; 83605; 83690; 83735; 83880; 84100; 84145; 84484; 85025; 85027; 85379; 85610; 85730; 86140; 86850; 86900; 86901; 87040; 87070; 87077; 87205; 87449; 87804; 87899; 89220; 93005; 94002; 94003; 94640; 94660; 96365; 96374; 96375; 99292; C9113; J0613; J0692; J1100; J1644; J1720; J1815; J1940; J1956; J2060; J2270; J2272; J2543; J2704; J2765; J2920; J2930; J3010; J3370; J3370-JW; J3475; J3480; J3490; J7030; J7042; J7050; J7070; J7120; J7620; J7999; P9016; P9047; Q9967; U0002